=== PATIENT | male | born 1950 | race Caucasian/White ===

== ENCOUNTER → 2017-06-30 08:01 | Outpatient (CLI) | payer OTHER, MEDICARE, SELFPAY ==
[2017-06-30 10:11] LABS: Anion Gap 10 (5-15); BUN 30 mg/dL (7-18); Chloride 106 mmol/L (98-107); Creatinine, Serum 1.34 mg/dL (0.70-1.30); EST Glomerular Filtration Rate 56 mL/min (>60); Est Glom Filt Rate - Afr Amer 68 mL/min (>60); Potassium 4.2 mmol/L (3.5-5.1); Sodium Level 141 mmol/L (136-145)
== END ==
PROVIDERS: Family Provider Family Medicine; PCP Family Medicine
DX: E11.69 Type 2 diabetes mellitus with other specified complication (principal); Z79.4 Long term (current) use of insulin
CPT/HCPCS: 36415; 80051; 82565; 84520

== ENCOUNTER → 2018-05-26 07:36 | Outpatient (CLI) | payer MEDICARE, OTHER, SELFPAY ==
[2018-01-27 10:40] VITALS: BMI 40.1
[2018-05-26 10:25] LABS: AST(SGOT) 19 U/L (15-37); Alanine Aminotransfer ALT/SGPT 33 U/L (16-61); Albumin, Serum 3.8 g/dL (3.2-5.0); Alkaline Phosphatase 70 U/L (45-117); Bilirubin, Direct 0.17 mg/dL (0.00-0.30); Cholesterol 101 mg/dL (200); Globulin 3.7 g/dL (2.2-4.2); High Density Lipoprotein 42 mg/dL; Protein, Total 7.5 g/dL (6.4-8.2); Triglycerides 76 mg/dL; Very Low Density Lipoprotein 15 mg/dL (5-40)
== END ==
PROVIDERS: Family Provider Family Medicine; PCP Family Medicine; Referring Provider Internal Medicine Cardiovascular Disease; Visit Provider Internal Medicine Cardiovascular Disease
DX: I25.10 Atherosclerotic heart disease of native coronary artery without angina pectoris (principal); E78.5 Hyperlipidemia, unspecified
CPT/HCPCS: 36415; 80061; 80076

== ENCOUNTER → 2018-09-21 09:20 | Outpatient (CLI) | payer MEDICARE, OTHER, SELFPAY ==
[2018-08-20 11:08] VITALS: BMI 41.1
--- NOTE | 2018-09-21 09:21 | STEWCON_ITS ---
Reason For Study: ASHD, HTN Stress Results Protocol: Solomon Protocol WITH DEFINITY Maximum Predicted HR: 151 bpm Target HR: 128 bpm % Maximum Predicted HR: 99 % DurationHeart Rate Stage (mm:ss) (bpm) BP Comment BASELINE 71 158/903 CC DEFINITY STAGE 1 3:00 137 202/96 STAGE 2 1:16 150 / 1CC DEFINITY RECOVERY 85 166/88 Stress Duration: 4:16 mm:ss Maximum Stress HR: 150 bpm Baseline Echocardiogram Findings The estimated ejection fraction is 50 %. Stress Echo Wall motion Data Resting WM Intermediate WM Stress WM Resting Wall Motion Wall Motion Stress Infero-Basal: Mildly hypokinetic. No regional wall motion abnormalities noted. EKG Data The baseline ECG displays normal sinus rhythm. The patient exercised according to the regular Solomon protocol for a total duration of 4:16. The maximum heart rate attained was 162 beats per minute. This was 107% of maximum predicted heart rate. The patient exercised into stage 2 of the Solomon protocol. During stress, there were no ST or T wave changes noted to suggest ischemia. No clinical angina was noted. Interpretation Summary The estimated ejection fraction is 50 %. Normal, adequate, treadmill echocardiogram. Negative for ischemia by EKG and echocardiographic criteria. No anginal symptoms noted. Rare PVCs noted. Hypertensive blood pressure response to exercise. Below average exercise capacity for age. Patient had baseline inferobasal hypokinesis which did not appreciably worsened during exercise. All other poe appear to contract normally. Decreased sensitivity due to poor echo windows requiring Definity agent. Final LVEF of 60%. Test terminated due to dyspnea and attainment of target heart rate. No complications. The study was technically difficult. Contrast injection was performed. Ordering Physician: Carl Saldana Referring Physician: Carl Saldana Performed By: Gerard Harper RCS
== END ==
PROVIDERS: Family Provider Family Medicine; PCP Family Medicine; Referring Provider Internal Medicine Cardiovascular Disease; Visit Provider Internal Medicine Cardiovascular Disease
DX: I25.10 Atherosclerotic heart disease of native coronary artery without angina pectoris (principal); I10 Essential (primary) hypertension; E78.5 Hyperlipidemia, unspecified; Z95.1 Presence of aortocoronary bypass graft
CPT/HCPCS: 93017; 93350; Q9957; A4216; C8928

== ENCOUNTER 2019-02-02 01:28 | Emergency (ER) | payer MEDICARE, OTHER, SELFPAY ==
[2019-01-20 13:58] VITALS: BMI 41.1
[2019-02-02 01:29] VITALS: BP 187/92; PULSE 90; RESP 15; TEMP 36.3; O2SAT 94; BMI 41.3
[2019-02-02] MEDS: DiphenhydrAMINE 50 MG/ML Syringe 25 MG IV (01:50)
[2019-02-02] MEDS: Famotidine 200 MG/20 ML MDV 20 MG in 0.9% Normal Saline (Pres. free 8 ML 300 MG IV (01:52)
[2019-02-02 02:28] VITALS: BP 152/71; PULSE 75; RESP 16; O2SAT 94
--- NOTE | 2019-02-02 03:11 | ED.VIS.GEN ---
History of Present Illness Chief Complaint: Allergic Reaction Informant: Patient, Family Onset: Hours Context: Gradual Onset Current Severity: Mild Maximum Severity: Mild Narrative: Patient presents with possible allergic reaction to prednisone. He states he has a known sensitivity to steroids. He was started on oral prednisone by his ball worker. He took 20 mg at noon yesterday and 20 mg at 5:30 PM. He states when he went to bed tonight he just cannot get comfortable. He used his CPAP but realized he felt his throat was getting tight. states it does not seem as if his voice is normal. When patient presents to the ED he states symptoms have been ongoing for the last couple hours and did not seem to be getting any worse but not getting better either. - Past Medical History (1) S/P CABG x 3 Status: Chronic Comment: CABG x3 CAZARES to LAD, SVG to DX, SVG to OM 11/01/2013; Per Dr. Jose Luis Elena @ [facility] (2) Atherosclerotic heart disease of [place] coronary artery without angina pectoris Status: Chronic Comment: CABG x3 CAZARES to LAD, SVG to DX, SVG to OM 11/01/2013; (3) Hyperlipidemia Status: Chronic (4) Type II diabetes mellitus Status: Chronic (5) Hypertension Status: Chronic Past Medical History - Allergies and Home Meds Allergies/Adverse Reactions: Allergies cortisone [Cortisone] Adverse Reaction (Verified 01/19/19 08:57) Other Hiccups prednisone Adverse Reaction (Verified 01/19/19 08:57) Unknown Hiccups Primary Care Physician: Onel Graham MD [Primary Care Provider] - Doctors: Dr. Lyons Prior records reviewed: Yes Surgical History: tonsillectomy, - - Back surgery, carpal tunnel surgery Lives: Spouse/ Significant Other Smoking Status: Never smoker - Family History Maternal Family History: Family History (Last Reviewed 01/19/19 @ 08:58 by Lou Sanford) Father Polio Brother Alcoholism Colon cancer Hypertension Family History: Reports: No pertinent history Paternal Family History: Family History (Last Reviewed 01/19/19 @ 08:58 by Lou Sanford) Father Polio Brother Alcoholism Colon cancer Hypertension Family History: Reports: No pertinent history Review of Systems General: Denies: Chills, Fever Eyes: Denies: Visual changes - bilaterally ENT: Reports: - - Throat tightness. Denies: Bilateral ear pain Cardiovascular: Denies: Chest pain Respiratory: Denies: Dyspnea, Cough Gastrointestinal: Denies: Abdominal pain, Nausea, Vomiting, Diarrhea Skin: Reports: Wounds Allergy: Denies: Uticaria Physical Exam Vital Signs/Narrative: Vital Signs Temp Pulse Resp BP Pulse Ox 02/02/19 02:28 75 16 152/71 H 94 02/02/19 01:29 97.4 F L 90 15 187/92 H 94 Inital Vital Signs reviewed: Yes General: Well nourished, Well developed, - - Patient resting with head of bed approximately 45 degrees. He speaks with a strong voice and is tolerating secretions well. Head: Normocephalic ENT: Moist mucous membranes, - - Posterior pharynx examination unremarkable. Cardiovascular: Regular rate, Regular rhythm Respiratory: No distress, CTA bilaterally Abdomen: Soft, Nontender Extremities: Nontender Skin: Normal color, - - Scattered scabbed lesions noted on the left upper extremity consistent with the patient's current atopic dermatitis. Neurological: Alert, Oriented x3 Psychological: Normal affect Diagnostic/Tx/Re-eval - Medical Decision Making Patient was monitored on continuous pulse ox. He was given IV Benadryl and Pepcid. On repeat evaluation patient reports feeling better. feels that his voice is back to baseline. He is observed for period of an hour and a half and continues to do well. I did discuss with patient and at bedside that the half-life of prednisone is approximately 4 hours so I would expect the drug to be out of his system in 8 to 12 hours. They voiced understanding and agreement. ED Disposition - Plan for ED Patient: Disposition: Home or Assisted Living Diagnosis: Allergic reaction Instructions: ALLERGIC REACTION, Drug Prescriptions: DiphenhydrAMINE [Benadryl] 50 mg PO TID PRN PRN #20 cap PRN Reason: Allergies Transmission Status: Pending to [facility] Famotidine [Pepcid] 20 mg PO BID PRN #28 tab PRN Reason: Allergies Transmission Status: Pending to [facility] Referrals: Onel Graham MD [Primary Care Provider] - As Needed
[2019-02-02 03:28] VITALS: BP 155/76; PULSE 82; RESP 16; O2SAT 96
== END 2019-02-02 03:30 | disposition home or self-care (01) ==
PROVIDERS: Emergency Provider Emergency Medicine; Family Provider Family Medicine; PCP Family Medicine
DX: T78.40XA Allergy, unspecified, initial encounter (principal); X58.XXXA Exposure to other specified factors, initial encounter; L20.9 Atopic dermatitis, unspecified; I25.10 Atherosclerotic heart disease of native coronary artery without angina pectoris; E78.5 Hyperlipidemia, unspecified; E11.9 Type 2 diabetes mellitus without complications; I10 Essential (primary) hypertension; Z79.82 Long term (current) use of aspirin; Z79.4 Long term (current) use of insulin; Z79.899 Other long term (current) drug therapy; Z95.1 Presence of aortocoronary bypass graft
CPT/HCPCS: 96365; 96375; 99283; A4216; J3490

== ENCOUNTER → 2019-02-18 15:09 | Outpatient (CLI) | payer MEDICARE, OTHER, SELFPAY ==
[2019-02-02 01:29] VITALS: BMI 41.3
[2019-02-18 17:27] LABS: Absolute Lymphocyte Count 2.19 X10^3/uL (0.83-4.51); Absolute Neutrophil Count 5.5 X10^3/uL (2.0-7.7); Basophil# 0.09 X10^3/uL; Eosinophils% 4.4 % (0-5); Hematocrit 44.7 % (40-54); Hemoglobin 14.7 g/dL (13.0-16.5); Lymphocyte # 2.19 X10^3/ul (4.0); Lymphocyte % 23.9 % (19-41); Mean Corp Hgb Conc 32.9 g/dL (32-36); Mean Corpuscular Hgb 31.2 pg (27.0-32.0); Mean Corpuscular Volume 94.9 fL (80-94); Mean Platelet Vol. 10.7 fl (6.2-12.0); Monocyte# 0.93 X10^3/uL; Monocyte% 10.2 % (0-10); NRBC Flagged by Analyzer 0 % (0-5); Neutrophil % 60.1 % (47-70); Platelet Count 212 K/mm3 (150-450); RBC Distribution Width CV 12.2 % (11.6-14.6); RBC Distribution Width SD 42.8 fl (35.1-43.9); Red Blood Count 4.71 M/mm3 (4.6-6.2); White Blood Count 9.2 K/mm3 (4.4-11.0)
[2019-02-18 17:50] LABS: AST(SGOT) 17 U/L (15-37); Alanine Aminotransfer ALT/SGPT 36 U/L (16-61); Albumin, Serum 3.9 g/dL (3.2-5.0); Alkaline Phosphatase 87 U/L (45-117); Anion Gap 7 (5-15); BUN 43 mg/dL (7-18); BUN/Creat Ratio 24.3 RATIO (10-20); Calcium,Total 8.9 mg/dL (8.5-10.1); Chloride 103 mmol/L (98-107); Creatinine, Serum 1.77 mg/dL (0.70-1.30); EST Glomerular Filtration Rate 41 mL/min (>60); Est Glom Filt Rate - Afr Amer 49 mL/min (>60); Globulin 3.9 g/dL (2.2-4.2); Glucose 155 mg/dL (74-106); PSA,Total - Annual Screen 0.65 ng/mL (0.00-4.00); Potassium 4.5 mmol/L (3.5-5.1); Protein, Total 7.8 g/dL (6.4-8.2); Sodium Level 138 mmol/L (136-145)
== END ==
PROVIDERS: Family Provider Family Medicine; PCP Family Medicine; Visit Provider Family Medicine
DX: L50.9 Urticaria, unspecified (principal); R21 Rash and other nonspecific skin eruption; Z12.5 Encounter for screening for malignant neoplasm of prostate; Z84.81 Family history of carrier of genetic disease
CPT/HCPCS: 36415; 80053; 84153; 85025; G0103

== ENCOUNTER → 2019-12-20 08:11 | Outpatient (CLI) | payer MEDICARE, OTHER, SELFPAY ==
[2019-12-03 07:59] VITALS: BMI 43.9
[2019-12-20 11:25] LABS: Cholesterol 105 mg/dL (200); High Density Lipoprotein 41 mg/dL; Triglycerides 101 mg/dL; Very Low Density Lipoprotein 20 mg/dL (5-40)
== END ==
PROVIDERS: PCP Family Medicine; Referring Provider Family Medicine; Visit Provider Family Medicine
DX: I10 Essential (primary) hypertension (principal); Z15.01 Genetic susceptibility to malignant neoplasm of breast; Z15.09 Genetic susceptibility to other malignant neoplasm
CPT/HCPCS: 36415; 80061

== ENCOUNTER → 2020-01-17 11:26 | Outpatient (CLI) | payer MEDICARE, OTHER, SELFPAY ==
[2020-01-17 10:48] VITALS: BMI 44.6
[2020-01-17 15:43] LABS: ALB/GLOB Ratio 1.1 RATIO (0.9-2.4); AST(SGOT) 34 U/L (15-37); Alanine Aminotransfer ALT/SGPT 54 U/L (16-61); Alkaline Phosphatase 76 U/L (45-117); Anion Gap 7 (5-15); BUN 27 mg/dL (7-18); BUN/Creat Ratio 18.2 RATIO (10-20); Calcium,Total 9.7 mg/dL (8.5-10.1); Chloride 108 mmol/L (98-107); Creatinine, Serum 1.48 mg/dL (0.70-1.30); EST Glomerular Filtration Rate 50 mL/min (>60); Est Glom Filt Rate - Afr Amer 60 mL/min (>60); Globulin 3.5 g/dL (2.2-4.2); Glucose 113 mg/dL (74-106); Potassium 4.8 mmol/L (3.5-5.1); Protein, Total 7.5 g/dL (6.4-8.2); Sodium Level 142 mmol/L (136-145); Thyroid Stim Hormone (TSH) 1.88 uIU/mL (0.358-3.74)
[2020-01-17 16:07] LABS: Microalbumin:Creatinine Ratio 179.2 mg/g CRE (<30 mg/g CRE)
== END ==
PROVIDERS: PCP Family Medicine; Referring Provider Internal Medicine Endocrinology, Diabetes & Metabolism; Visit Provider Internal Medicine Endocrinology, Diabetes & Metabolism
DX: E11.42 Type 2 diabetes mellitus with diabetic polyneuropathy (principal); I25.10 Atherosclerotic heart disease of native coronary artery without angina pectoris; E78.5 Hyperlipidemia, unspecified
CPT/HCPCS: 36415; 80053; 82043; 82570; 84443

== ENCOUNTER 2020-03-26 18:18 | Emergency (ER) | payer MEDICARE, OTHER, SELFPAY ==
[2020-01-17 10:48] VITALS: BMI 44.6
[2020-03-26 18:19] VITALS: BP 199/97
[2020-03-26 18:20] VITALS: BP 201/106; PULSE 73; RESP 18; TEMP 36.1; O2SAT 97; BMI 43.0
--- NOTE | 2020-03-26 18:38 | CT_ITS ---
STUDY: CT ABDOMEN AND PELVIS WITHOUT CONTRAST REASON FOR EXAM: Male, 70 years old. Right lower quadrant pain PAIN TODAY, HX [place], HTN, CABG RADIATION DOSAGE (If Supplied By Facility): CTDIvol = ( 20.32 ) mGy, DLP = ( 1634.21 ) mGycm TECHNIQUE: Transaxial images were obtained from the dome of the diaphragm to the symphysis pubis without oral contrast, and without intravenous contrast. Sagittal and coronal images were reconstructed. Individualized dose optimization techniques were used for this CT. COMPARISON: None. FINDINGS: The visualized lung bases are unremarkable. The visualized portions of the heart are within normal limits. The lack of intravenous contrast limits evaluation of solid visceral organs. Normal liver. There is a round calcification within the right hepatic lobe which may reflect a granuloma. Normal spleen. Normal pancreas. Normal bilateral adrenal glands. There is right hydroureteronephrosis secondary to a 3.0 mm calculi within the proximal and mid ureter. There are nonobstructing right renal calculi measuring up to 3 mm. There are nonobstructing left renal calculi measuring up to 8.7 mm. There is a left renal cyst. Normal visualized stomach. Normal small intestine. Normal colon. The appendix is visualized and appears normal. There is diffuse atherosclerotic calcification of the abdominal aorta, without a demonstrated aneurysm. Normal inferior vena cava. Normal retroperitoneum. Normal urinary bladder. Normal abdominal wall. There are diffuse degenerative changes of the visualized lumbar spine. CT/Abdomen/Pelvis without Cont IMPRESSION: Right hydroureteronephrosis secondary to two ureteral 3 mm calculi. Bilateral nonobstructing renal calculi measuring up to 8.7 mm on the left. Atherosclerosis. Left renal cyst. Degenerative changes of the lumbar spine. Electronically Signed: Brianna Maldonado MD at 19:28 EST Tel , Service support ,
--- NOTE | 2020-03-26 18:41 | ED.DCSUM_ITS ---
History of Present Illness Chief Complaint: Abd Pain Informant: Patient Narrative: 70-year-old male states that 0300 today he woke with pain in the right lower quadrant. It is waxed and waned. He notes nausea and vomiting. He has a history of kidney stones. He has never had an appendectomy. He notes no testicular pain or radiation to his flank. He notes his urine is darker than normal. 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 Jose Luis Elena @ [facility] (4) Obesity Status: Chronic (5) Hyperlipidemia Status: Chronic (6) Hypertension Status: Chronic Past Medical History - Allergies and Home Meds Allergies/Adverse Reactions: Allergies prednisone Adverse Reaction (Severe, Verified 03/26/20 18:19) Anaphylactic reaction lisinopril Adverse Reaction (Intermediate, Verified 03/26/20 18:19) cough cortisone [Cortisone] Adverse Reaction (Verified 03/26/20 18:19) Other Hiccups Primary Care Physician: Klarissa Casillas MD [Primary Care Provider] - As Needed Evans Castellon MD [STAFF PHYSICIAN] - As soon as possible Surgical History: noncontributory, tonsillectomy, - - Back surgery, carpal tunnel surgery Smoking Status: Never smoker Drugs: None - Family History Maternal Family History: Family History (Last Reviewed 01/17/20 @ 13:[address] Narciso Malloy MD) Father Polio Brother Alcoholism Colon cancer Hypertension Family History: Reports: No pertinent history Paternal Family History: Family History (Last Reviewed 01/17/20 @ 13:[address] Narciso Malloy MD) Father Polio Brother Alcoholism Colon cancer Hypertension Family History: Reports: No pertinent history Review of Systems General: Denies: Chills, Fever, Sweats Eyes: Denies: Visual changes - bilaterally, Diplopia ENT: Denies: Rhinorrhea, Sore throat Cardiovascular: Denies: Chest pain, Palpitations Respiratory: Denies: Dyspnea, Cough, Dyspnea on exertion Gastrointestinal: Reports: Abdominal pain, Nausea, Vomiting. Denies: Diarrhea, Melena, Hematochezia Genitourinary: Denies: Dysuria, Hematuria, Frequency Musculoskeletal: Denies: Back pain, Extremity Pain Skin: Denies: Rash, Wounds Neurological: Denies: Headache, Weakness, Numbness Physical Exam Vital Signs/Narrative: Vital Signs Temp Pulse Resp BP Pulse Ox 03/26/20 18:20 96.9 F L 73 18 201/106 H 97 Inital Vital Signs reviewed: Yes General: Well nourished, Well developed, Obese, No Acute Distress Head: Normocephalic, Atraumatic Eyes: Perrl, EOMI ENT: Moist mucous membranes, No rhinorrhea Neck: Supple, Nontender Cardiovascular: Regular rate, Regular rhythm, No murmurs Respiratory: No distress, CTA bilaterally, Chest nontender Abdomen: Soft, Nontender, Nondistended, Normal bowel sounds Back: Nontender, Normal Inspection Extremities: Nontender, No edema Skin: Normal color, No rash Neurological: Alert, Oriented x3, Cranial nerves II-XII grossly intact, Normal Strength, Normal Sensation Psychological: Normal affect, Normal Mood Diagnostic/Tx/Re-eval Clinical Impression(s) from Imaging Studies Abdomen/Pelvis CT 03/26/20 18:38 IMPRESSION: Right hydroureteronephrosis secondary to two ureteral 3 mm calculi. Bilateral nonobstructing renal calculi measuring up to 8.7 mm on the left. Atherosclerosis. Left renal cyst. Degenerative changes of the lumbar spine. Electronically Signed: Brianna Maldonado MD at 19:28 EST Tel , Service support , Laboratory Last Values WBC 14.5 K/mm3 (4.4-11.0) H 03/26/20 18:50 RBC 4.81 M/mm3 (4.6-6.2) 03/26/20 18:50 Hgb 15.0 g/dL (13.0-16.5) 03/26/20 18:50 Hct 46.8 % (40-54) 03/26/20 18:50 MCV 97.3 fL (80-94) H 03/26/20 18:50 MCH 31.2 pg (27.0-32.0) 03/26/20 18:50 MCHC 32.1 g/dL (32-36) 03/26/20 18:50 RDW Std Deviation 44.5 fl (35.1-43.9) H 03/26/20 18:50 RDW Coeff of [place] 12.3 % (11.6-14.6) 03/26/20 18:50 Plt Count 195 K/mm3 (150-450) 03/26/20 18:50 MPV 11.3 fl (6.2-12.0) 03/26/20 18:50 Immature Gran % (Auto) 0.800 % (0.0-0.9) 03/26/20 18:50 Neut % (Auto) 79.5 % (47-70) H 03/26/20 18:50 Lymph % (Auto) 11.4 % (19-41) L 03/26/20 18:50 [place] % (Auto) 7.3 % (0-10) 03/26/20 18:50 Eos % (Auto) 0.6 % (0-5) 03/26/20 18:50 Baso % (Auto) 0.4 % (0-1) 03/26/20 18:50 Absolute Neuts (auto) 11.6 X10^3/uL (2.0-7.7) H 03/26/20 18:50 Absolute Lymphs (auto) 1.65 X10^3/uL (0.83-4.51) 03/26/20 18:50 Nucleated RBC % 0 % (0-5) 03/26/20 18:50 Sodium 142 mmol/L (136-145) 03/26/20 18:50 Potassium 4.0 mmol/L (3.5-5.1) 03/26/20 18:50 Chloride 111 mmol/L (98-107) H 03/26/20 18:50 Carbon Dioxide 25.0 mmol/L (21.0-32.0) 03/26/20 18:50 Anion Gap 6 (5-15) 03/26/20 18:50 BUN 31 mg/dL (7-18) H 03/26/20 18:50 Creatinine 1.76 mg/dL (0.70-1.30) H 03/26/20 18:50 Estim Creat Clear Calc 43.51 ml/min 03/26/20 18:50 Est GFR (MDRD) Af Amer 49 mL/min (>60) L 03/26/20 18:50 Est GFR (MDRD) Non-Af 41 mL/min (>60) L 03/26/20 18:50 BUN/Creatinine Ratio 17.6 RATIO (10-20) 03/26/20 18:50 Glucose 149 mg/dL (74-106) H 03/26/20 18:50 Calcium 9.0 mg/dL (8.5-10.1) 03/26/20 18:50 Urine Color Yellow (Yellow) 03/26/20 18:45 Urine Clarity Cloudy (Clear) 03/26/20 18:45 Urine pH 5.0 (5.0 - 8.0) 03/26/20 18:45 Ur Specific [place] 1.020 (1.002-1.030) 03/26/20 18:45 Urine Protein 100 mg/dl (Negative) H 03/26/20 18:45 Urine Glucose (UA) Normal mg/dl (Normal) 03/26/20 18:45 Urine Ketones 5 mg/dl (Negative) H 03/26/20 18:45 Urine Occult Blood 250 /ul (Negative) H 03/26/20 18:45 Urine Nitrite Negative (Negative) 03/26/20 18:45 Urine Bilirubin Negative mg/dL (Negative) 03/26/20 18:45 Urine Urobilinogen Normal mg/dl (Normal) 03/26/20 18:45 Ur Leukocyte Esterase 25 /ul (Negative) H 03/26/20 18:45 Urine RBC > 100 SEEN /hpf (0-5) 03/26/20 18:45 Urine WBC 0-5 SEEN /hpf (0-5) 03/26/20 18:45 Ur Squamous Epith Cells 0 SEEN /hpf (0-5) 03/26/20 18:45 Urine Bacteria 0 SEEN /hpf (None Seen) 03/26/20 18:45 Urine Mucus 0 SEEN /hpf (<or=2+) 03/26/20 18:45 - Medical Decision Making She received morphine Zofran and IV fluids. He is resting more comfortably. He'll be redosed as he states that he is still having some pain. Work-up shows hematuria and a slight leukocytosis. There is no evidence of urine infection. CT demonstrates two ureteral stones on the right with associated hydronephroureter. I'm recommending to the patient given he has 2 stones in the ureter and more stones in his kidneys and this is a recurrent condition he may wish to see urology for follow-up. I will provide him name and number. I also write for oxycodone and Zofran and Flomax to take at night. ED Disposition - Plan for ED Patient: Disposition: Home or Assisted Living Diagnosis: Ureterolithiasis, Acute abdominal pain Instructions: ED Kidney Stone w/ Colic Prescriptions: Tamsulosin HCl [Flomax] 0.4 mg PO QHS #7 cap Transmission Status: Received by [facility] #30 Oxycodone [Oxyir] 5 - 10 mg PO Q4H PRN PRN 3 Days #20 tab PRN Reason: Pain Transmission Status: Received by [facility] Ondansetron [Zofran Odt] 4 mg PO Q6H PRN PRN #10 tab PRN Reason: Nausea Transmission Status: Received by [facility] Referrals: Evans Castellon MD [STAFF PHYSICIAN] - As soon as possible Klarissa Casillas MD [Primary Care Provider] - As Needed
[2020-03-26] MEDS: Morphine 4 MG/ML Syringe IV ×2 (18:52→20:02)
[2020-03-26] MEDS: Ondansetron 4 MG/2 ML Vial IV ×2 (18:53→20:02)
[2020-03-26] MEDS: 0.9% Normal Saline 1,000 ML 999 ML IV (18:53)
[2020-03-26 19:15] LABS: Bacteria 0 SEEN /hpf (None Seen); Mucous, Urine 0 SEEN /hpf (<or=2+); Squamous Epithelial Cells - UA 0 SEEN /hpf (0-5)
[2020-03-26 19:19] LABS: Absolute Lymphocyte Count 1.65 X10^3/uL (0.83-4.51); Absolute Neutrophil Count 11.6 X10^3/uL (2.0-7.7); Basophil# 0.06 X10^3/uL; Basophil% 0.4 % (0-1); Eosinophil# 0.08 X10^3/uL; Eosinophils% 0.6 % (0-5); Hematocrit 46.8 % (40-54); Lymphocyte # 1.65 X10^3/ul (4.0); Lymphocyte % 11.4 % (19-41); Mean Corp Hgb Conc 32.1 g/dL (32-36); Mean Corpuscular Hgb 31.2 pg (27.0-32.0); Mean Corpuscular Volume 97.3 fL (80-94); Mean Platelet Vol. 11.3 fl (6.2-12.0); Monocyte# 1.06 X10^3/uL; Monocyte% 7.3 % (0-10); NRBC Flagged by Analyzer 0 % (0-5); Neutrophil # 11.55 X10^3/uL (2.7-7.7); Neutrophil % 79.5 % (47-70); Platelet Count 195 K/mm3 (150-450); RBC Distribution Width CV 12.3 % (11.6-14.6); RBC Distribution Width SD 44.5 fl (35.1-43.9); Red Blood Count 4.81 M/mm3 (4.6-6.2); White Blood Count 14.5 K/mm3 (4.4-11.0)
[2020-03-26 19:27] LABS: Color, Urine Yellow (Yellow); Glucose, Dipstick Normal (Normal); Ketone-Dipstick 5 mg/dl (Negative); Leukocyte Esterase-Dipstick 25 /ul (Negative); Nitrite-Dipstick Negative (Negative); Occult Blood-Urine 250 /ul (Negative); Protein-Dipstick 100 mg/dl (Negative); Urine Bilirubin Dipstick Negative (Negative); Urine Clarity Cloudy (Clear); Urine Urobilinogen Normal (Normal)
[2020-03-26 19:37] LABS: Red Blood Cells-Urine > 100 SEEN /hpf (0-5); White Blood Cells 0-5 SEEN /hpf (0-5)
[2020-03-26 19:42] LABS: Anion Gap 6 (5-15); BUN 31 mg/dL (7-18); BUN/Creat Ratio 17.6 RATIO (10-20); Chloride 111 mmol/L (98-107); Creatinine, Serum 1.76 mg/dL (0.70-1.30); EST Glomerular Filtration Rate 41 mL/min (>60); Est Glom Filt Rate - Afr Amer 49 mL/min (>60); Estimated Creatinine Clearance 43.51 ml/min; Glucose 149 mg/dL (74-106); Sodium Level 142 mmol/L (136-145)
[2020-03-26 19:47] VITALS: BP 186/90
[2020-03-26 20:03] VITALS: BP 177/83; PULSE 99; RESP 17; O2SAT 98
== END 2020-03-26 20:07 | disposition home or self-care (01) ==
PROVIDERS: Emergency Provider Emergency Medicine; PCP Family Medicine
DX: N13.2 Hydronephrosis with renal and ureteral calculous obstruction (principal); E11.42 Type 2 diabetes mellitus with diabetic polyneuropathy; I10 Essential (primary) hypertension; E78.5 Hyperlipidemia, unspecified; E66.9 Obesity, unspecified; Z79.4 Long term (current) use of insulin; Z87.442 Personal history of urinary calculi; Z95.1 Presence of aortocoronary bypass graft
CPT/HCPCS: 74176; 80048; 81001; 85025; 96361; 96374; 96375; 96376; 99283; J7030; A4216; J2405

== ENCOUNTER → 2020-04-25 13:58 | Outpatient (CLI) | payer MEDICARE, OTHER, SELFPAY ==
[2020-03-26 18:20] VITALS: BMI 43.0
--- NOTE | 2020-04-25 14:10 | RAD_ITS ---
STUDY: X-RAY - ABDOMEN/PELVIS REASON FOR EXAM: Male, 70 years old. CALCULUS OF KIDNEY W/CALCULUS OF URETER TECHNIQUE: Single AP view of the abdomen / pelvis. COMPARISON: None. FINDINGS: Normal visualized lung bases. There is an unremarkable bowel gas pattern. There is a 1.4 cm calculus in the lower pole calyx of the left kidney. Adjacent to this, there is a 0.6 cm calculus in the lower pole calyx of the left kidney. There are calcified phleboliths in the pelvis. There are diffuse degenerative changes of the visualized lumbar spine. RAD/Abdomen Single View IMPRESSION: 1.4 cm focus in the lower pole of the left kidney. A 0.6 cm calculus is seen in the lower pole of the left kidney adjacent to the larger calculus. Electronically Signed: Brian Plata MD at 14:43 EST , Service support ,
== END ==
PROVIDERS: PCP Family Medicine; Visit Provider Urology
DX: N20.2 Calculus of kidney with calculus of ureter (principal)
CPT/HCPCS: 74018

== ENCOUNTER → 2020-06-14 10:43 | Outpatient (CLI) | payer MEDICARE, OTHER, SELFPAY ==
[2020-06-12 08:06] VITALS: BMI 43.1
[2020-06-14 12:49] LABS: Anion Gap 4 (5-15); BUN 25 mg/dL (7-18); BUN/Creat Ratio 16.2 RATIO (10-20); Calcium,Total 9.2 mg/dL (8.5-10.1); Chloride 108 mmol/L (98-107); Creatinine, Serum 1.54 mg/dL (0.70-1.30); EST Glomerular Filtration Rate 48 mL/min (>60); Est Glom Filt Rate - Afr Amer 58 mL/min (>60); Glucose 203 mg/dL (74-106); PSA,Total - Annual Screen 0.64 ng/mL (0.00-4.00); Potassium 5.3 mmol/L (3.5-5.1); Sodium Level 141 mmol/L (136-145)
== END ==
PROVIDERS: PCP Family Medicine; Referring Provider Family Medicine; Visit Provider Family Medicine
DX: N18.30 Chronic kidney disease, stage 3 unspecified (principal); Z12.5 Encounter for screening for malignant neoplasm of prostate
CPT/HCPCS: 36415; 80048; 84153; G0103

== ENCOUNTER → 2020-06-21 10:13 | Outpatient (CLI) | payer MEDICARE, OTHER, SELFPAY ==
[2020-06-12 08:06] VITALS: BMI 43.1
[2020-06-21 12:24] LABS: Anion Gap 7 (5-15); BUN 33 mg/dL (7-18); BUN/Creat Ratio 20.9 RATIO (10-20); Calcium,Total 9.3 mg/dL (8.5-10.1); Chloride 106 mmol/L (98-107); Creatinine, Serum 1.58 mg/dL (0.70-1.30); EST Glomerular Filtration Rate 46 mL/min (>60); Est Glom Filt Rate - Afr Amer 56 mL/min (>60); Glucose 121 mg/dL (74-106); Potassium 4.5 mmol/L (3.5-5.1); Sodium Level 139 mmol/L (136-145)
== END ==
PROVIDERS: PCP Family Medicine; Referring Provider Family Medicine; Visit Provider Family Medicine
DX: N18.30 Chronic kidney disease, stage 3 unspecified (principal); Z12.5 Encounter for screening for malignant neoplasm of prostate
CPT/HCPCS: 36415; 80048

== ENCOUNTER 2020-08-21 20:53 | Emergency (ER) | payer MEDICARE, OTHER, SELFPAY ==
[2020-06-12 08:06] VITALS: BMI 43.1
[2020-08-21 20:54] VITALS: BP 145/64; PULSE 50; RESP 18; TEMP 35.4; O2SAT 93; BMI 42.2
[2020-08-21] MEDS: Ketorolac 15 MG/ML Vial IV (21:11)
[2020-08-21 21:12] VITALS: BP 181/74; PULSE 68; RESP 18; O2SAT 96
[2020-08-21] MEDS: Ondansetron 4 MG/2 ML Vial IV (21:12)
[2020-08-21] MEDS: Morphine 4 MG/ML Syringe IV (21:12)
--- NOTE | 2020-08-21 22:17 | CT_ITS ---
STUDY: CT ABDOMEN AND PELVIS WITHOUT CONTRAST REASON FOR EXAM: Male, 70 years old. Kidney Stone RADIATION DOSAGE (If Supplied By Facility): CTDIvol = ( 23.64 ) mGy, DLP = ( 1346.79 ) mGycm TECHNIQUE: Transaxial images were obtained from the dome of the diaphragm to the symphysis pubis without oral contrast, and without intravenous contrast. Sagittal and coronal images were reconstructed. Individualized dose optimization techniques were used for this CT. COMPARISON: CT of abdomen and pelvis dated March 26, 2020 FINDINGS: The visualized lung bases are unremarkable. Median sternotomy wires are present. A 1.57 cm calcification is reidentified in the posterior inferior aspect of the right lobe of the liver. The liver is otherwise unremarkable. Normal gallbladder and extrahepatic biliary system. Normal spleen. Normal pancreas. Normal bilateral adrenal glands. Reidentification of a 1.4 cm stone in the central pelvis of the left kidney. Moderate size simple cyst in the mid aspect of the left kidney reidentified and does not require any additional imaging. Reidentification multiple punctate calyceal stones scattered throughout the right kidney as well as a 3 mm stone seen in the midpole of the right kidney. No visualized hydronephrosis. Mild perinephric stranding of both kidneys unchanged from the prior study. Normal visualized stomach. Normal small intestine. Normal colon. The appendix is visualized and appears normal. There is diffuse atherosclerotic calcification of the abdominal aorta, without a demonstrated aneurysm. Normal inferior vena cava. Normal retroperitoneum. Normal urinary bladder. Normal abdominal wall. There are diffuse degenerative changes of the visualized lumbar spine. CT/Abdomen/Pelvis without Cont IMPRESSION: 1. Reidentification of a 1.4 cm stone in the central pelvis of the left kidney. Moderate size simple cyst in the mid aspect of the left kidney reidentified and does not require any additional imaging. 2. Reidentification multiple punctate calyceal stones scattered throughout the right kidney as well as a 3 mm stone seen in the midpole of the right kidney. 3. No visualized hydronephrosis. 4. Mild perinephric stranding of both kidneys unchanged from the prior study. Electronically Signed: Ross Lubin MD at 23:15 EDT , Service support ,
[2020-08-21 22:25] LABS: Absolute Lymphocyte Count 2.44 X10^3/uL (0.83-4.51); Absolute Neutrophil Count 8.4 X10^3/uL (2.0-7.7); Basophil% 0.8 % (0-1); Eosinophil# 0.43 X10^3/uL; Eosinophils% 3.4 % (0-5); Hematocrit 47.3 % (40-54); Hemoglobin 15.5 g/dL (13.0-16.5); Lymphocyte # 2.44 X10^3/ul (0.83-4.51); Lymphocyte % 19.2 % (19-41); Mean Corp Hgb Conc 32.8 g/dL (32-36); Mean Corpuscular Hgb 32.2 pg (27.0-32.0); Mean Corpuscular Volume 98.3 fL (80-94); Mean Platelet Vol. 11.4 fl (6.2-12.0); Monocyte# 1.24 X10^3/uL; Monocyte% 9.8 % (0-10); NRBC Flagged by Analyzer 0 % (0-5); Neutrophil # 8.41 X10^3/uL (2.7-7.7); Neutrophil % 66.2 % (47-70); Platelet Count 208 K/mm3 (150-450); RBC Distribution Width CV 12.1 % (11.6-14.6); Red Blood Count 4.81 M/mm3 (4.6-6.2); White Blood Count 12.7 K/mm3 (4.4-11.0)
[2020-08-21 22:34] LABS: Anion Gap 10 (5-15); BUN 39 mg/dL (7-18); BUN/Creat Ratio 18.3 RATIO (10-20); Calcium,Total 9.6 mg/dL (8.5-10.1); Chloride 104 mmol/L (98-107); Creatinine, Serum 2.13 mg/dL (0.70-1.30); EST Glomerular Filtration Rate 33 mL/min (>60); Est Glom Filt Rate - Afr Amer 40 mL/min (>60); Estimated Creatinine Clearance 35.95 ml/min; Glucose 174 mg/dL (74-106); Potassium 4.9 mmol/L (3.5-5.1); Sodium Level 140 mmol/L (136-145)
--- NOTE | 2020-08-21 22:43 | EDS_ITS ---
HPI History of Present Illness Chief Complaint: Flank Pain Informant: patient Onset/Context/Timing Onset: Today Current Severity: Moderate Maximum Severity: Severe Narrative Narrative: Patient is a 70-year-old male medical history significant for diabetes, hypertension, hyperlipidemia the presents to the emergency department left-sided flank pain. Patient states he has a known history of kidney stones. He states he last had one about 4 months ago. He does see Dr. Castellon. He states tonight at about 530, he had sudden onset, sharp, stabbing pain in his left flank. He was mildly nauseated but no vomiting. He states it feels like his prior stones before. He does not think he had lithotripsy or stenting. He denies chest pain or shortness of breath. Prior similar symptoms: Yes Recent Illness/Hospitalization: No PFSH [facility], LATER [facility] Medical History Atherosclerotic heart disease of [place] coronary artery without angina pectoris Back problem Carpal tunnel syndrome Chronic renal insufficiency COPD (chronic obstructive pulmonary disease) Diabetes Encounter for long-term (current) insulin use Essential (primary) hypertension History of non-ST elevation myocardial infarction (NSTEMI) (10/28/13) Hyperlipidemia Kidney stones Obesity [place] (obstructive sleep apnea) Polyneuropathy due to type 2 diabetes mellitus Seasonal allergies Type II diabetes mellitus Home Medications aspirin 81 mg tablet,delayed release 81 mg PO QDAY 07/16/17 [History Last Taken Unknown] multivitamin 1 tab PO DAILY 12/25/18 [History Last Taken Unknown] atorvastatin 20 mg tablet 20 mg PO DAILY 07/29/19 [History Last Taken Unknown] metformin 1,000 mg tablet 1,000 mg PO BID #60 tab 01/06/20 [Rx Last Taken Unknown] losartan 50 mg tablet 50 mg PO DAILY #90 tab 03/27/20 [Rx Last Taken Unknown] pen needle, diabetic 32 gauge x #600 ea 04/25/20 [Rx Last Taken Unknown] metoprolol tartrate 50 mg tablet 50 mg PO BID #180 tablet 06/01/20 [Rx Last Taken Unknown] insulin lispro 100 unit/mL subcutaneous pen 30 unit SC TID #81 ml 06/12/20 [Rx Last Taken Unknown] blood sugar diagnostic #100 ea 07/31/20 [Rx Last Taken Unknown] lancets 33 gauge #120 ea 07/31/20 [Rx Last Taken Unknown] hydrocodone-acetaminophen 1 tab PO Q6H PRN PRN 3 Days #10 tablet 08/21/20 [Rx Last Taken Unknown] insulin degludec [Tresiba FlexTouch U-200] 85 unit SC DAILY 08/21/20 [History Last Taken Unknown] ondansetron 4 mg PO Q8H PRN PRN #10 tab 08/21/20 [Rx Last Taken Unknown] Allergy/AdvReac Type Severity Reaction Status Date / Time prednisone AdvReac Severe Anaphylactic Verified 08/21/20 20:53 reaction lisinopril AdvReac Intermediate cough Verified 08/21/20 20:53 cortisone [Cortisone] AdvReac Other Verified 08/21/20 20:53 Family History Father Polio Brother Alcoholism Colon cancer Hypertension Surgical History H/O coronary artery bypass surgery (11/01/13) History of back surgery History of left heart catheterization (10/28/13) Social History Smoking Status: Never smoker alcohol intake: current alcohol intake frequency: holidays/special occasions only substance use type: does not use what type of physical activity do you participate in: other frequency: 3-4 times per week ROS ROS ED Constitutional Constitutional ED: Denies chills or fever(s) Eyes Eyes: Denies blurry vision or change in vision ENT ENT ED: Denies ear pain or sore throat Cardiovascular Cardiovascular: Denies chest pain or palpitations Respiratory/Chest Respiratory/Chest: Denies cough, dyspnea or dyspnea on exertion Gastrointestinal Gastrointestinal: Denies abdominal pain, nausea or vomiting Genitourinary Genitourinary ED: Denies dysuria or urinary frequency Musculoskeletal Musculoskeletal: Denies arthralgias or myalgias Integumentary Denies rash Neurologic Neurologic: Denies headache(s) or paresthesias Psychiatric Psychiatric: Denies anxiety or depression Endocrine Endocrinology: Denies polydipsia or polyuria Allergic/Immunologic Allergic/Immunologic ED: Denies urticaria EXAM Physical Exam Const Vital Signs: 08/21/20 20:54 08/21/20 21:12 08/21/20 21:14 Temperature 95.7 F L Temperature Source Temporal Pulse Rate 50 L 68 Respiratory Rate 18 18 Respiratory Effort Normal Respiratory Pattern Normal Blood Pressure 145/64 H 181/74 H Blood Pressure Mean 91 109 Pulse Ox 93 96 Oxygen Delivery Method Room Air Room Air Positive well nourished and well developed General Appearance ED: well developed HEENT Reports normocephalic, head/scalp atraumatic and moist mucous membranes Eyes PERRL and EOMs intact bilaterally Neck no lymphadenopathy and supple General: Negative for tenderness Chest Wall inspection of chest normal Resp normal respiratory effort and clear to auscultation bilaterally Cardio regular rate, regular rhythm and no murmurs GI normal to inspection, nondistended, normoactive bowel sounds Palpation: Negative for tender, guarding or rebound tenderness present Back/Spine General Back: CVA tenderness Cervical Spine: Negative for cervical spine tenderness Thoracic Spine / Upper Back: Negative for thoracic spinal tenderness Extremity normal to inspection General Extremety ED: Negative for tenderness Neuro oriented x3 and CN's II-XII intact bilaterally Neuro Narrative: No focal deficits appreciated. Sensorium / Orientation: alert Psych mental status grossly normal Skin no rashes or lesions noted, no wounds and skin turgor normal MDM MDM MDM Narrative Medical decision making narrative: Patient presents with left lateral flank pain. He was given analgesics and antiemetics and had resolution of his pain. Labs were obtained. The patient's creatinine is about his baseline. He does have mild leukocytosis. Urine does not show evidence of infection. The patient underwent CT imaging. He does have a large stone within the pelvis of the kidney. There is no hydronephrosis. My suspicion is the patient likely had some slight moving the stone that caused his pain and mild hematuria. There is no evidence of obstruction. His pain is now controlled. I am going to give him a short course of analgesics and have him follow-up with urology. Impression 1. Kidney stone on the left Lab Data Attestation: I reviewed the patient's lab results. Labs: Laboratory Results - last 24 hr 08/21/20 08/21/20 08/21/20 20:55 20:55 23:05 WBC 12.7 H RBC 4.81 Hgb 15.5 Hct 47.3 MCV 98.3 H MCH 32.2 H MCHC 32.8 RDW Std Deviation 44.0 H RDW Coeff of Nedra 12.1 Plt Count 208 MPV 11.4 Immature Gran % (Auto) 0.600 Neut % (Auto) 66.2 Lymph % (Auto) 19.2 [place] % (Auto) 9.8 Eos % (Auto) 3.4 Baso % (Auto) 0.8 Absolute Neuts (auto) 8.4 H Absolute Lymphs (auto) 2.44 Nucleated RBC % 0 Sodium 140 Potassium 4.9 Chloride 104 Carbon Dioxide 26.0 Anion Gap 10 BUN 39 H Creatinine 2.13 H Estim Creat Clear Calc 35.95 Est GFR (MDRD) Af Amer 40 L Est GFR (MDRD) Non-Af 33 L BUN/Creatinine Ratio 18.3 Glucose 174 H Calcium 9.6 Urine Color Yellow Urine Clarity Sl. Cloudy Urine pH 5.0 Ur Specific [place] 1.020 Urine Protein 100 H Urine Glucose (UA) Normal Urine Ketones 5 H Urine Occult Blood 250 H Urine Nitrite Negative Urine Bilirubin Negative Urine Urobilinogen Normal Ur Leukocyte Esterase 25 H Radiography Diagnostic Testing: Radiology Impression Abdomen/Pelvis CT 08/21/20 22:17 IMPRESSION: 1. Reidentification of a 1.4 cm stone in the central pelvis of the left kidney. Moderate size simple cyst in the mid aspect of the left kidney reidentified and does not require any additional imaging. 2. Reidentification multiple punctate calyceal stones scattered throughout the right kidney as well as a 3 mm stone seen in the midpole of the right kidney. 3. No visualized hydronephrosis. 4. Mild perinephric stranding of both kidneys unchanged from the prior study. Electronically Signed: Ross Lubin MD at 23:15 EDT , Service support , Discharge Plan Triage Chief Complaint: Flank Pain ED Provider: Kaden Hobbs Dx/Rx/DC Orders Instructions: ED Kidney Stone w/ Colic Prescriptions: New hydrocodone-acetaminophen [hydrocodone-acetaminophen] 1 TABLET tablet 1 tab PO Q6H PRN PRN (Reason: Pain) 3 Days Qty: 10 RF: 0 ondansetron [ondansetron] 4 MG tablet 4 mg PO Q8H PRN PRN (Reason: Nausea) Qty: 10 RF: 0 No Action aspirin [Adult Low Dose Aspirin] 81 mg tablet,delayed release (DR/EC) 81 mg PO QDAY RF: 0 atorvastatin 20 mg tablet 20 mg PO DAILY RF: 0 multivitamin Tablet 1 tab PO DAILY RF: 0 metoprolol tartrate 50 mg tablet 50 mg PO BID Qty: 180 RF: 6 insulin lispro [Humalog KwikPen Insulin] 100 unit/mL insulin pen 30 unit SC TID Qty: 81 RF: 3 Tresiba FlexTouch U-200 200 unit/mL (3 mL) insulin pen 85 unit SC DAILY RF: 0 metformin 1,000 mg tablet 1,000 mg PO BID Qty: 60 RF: 6 losartan 50 mg tablet 50 mg PO DAILY Qty: 90 RF: 3 (DME) pen needle, diabetic [BD Ultra-Fine [place] Pen Needle] 32 gauge x 5/32 needle See Rx Instructions .ROUTE .MEDSUPPLY Qty: 600 RF: 3 (DME) lancets [OneTouch Delica Plus Lancet] 33 gauge misc See Rx Instructions .ROUTE .MEDSUPPLY Qty: 120 RF: 8 (DME) OneTouch Verio test strips Strip See Rx Instructions .ROUTE .MEDSUPPLY Qty: 100 RF: 12 Primary Care Provider: Klarissa Casillas Referrals: Klarissa Casillas MD [Primary Care Provider] -
[2020-08-21 23:19] LABS: Mucous, Urine 0 SEEN /hpf (<or=2+); Squamous Epithelial Cells - UA 0 SEEN /hpf (0-5)
[2020-08-21 23:20] LABS: Color, Urine Yellow (Yellow); Glucose, Dipstick Normal (Normal); Ketone-Dipstick 5 mg/dl (Negative); Leukocyte Esterase-Dipstick 25 /ul (Negative); Nitrite-Dipstick Negative (Negative); Occult Blood-Urine 250 /ul (Negative); Protein-Dipstick 100 mg/dl (Negative); Urine Bilirubin Dipstick Negative (Negative); Urine Clarity Sl. Cloudy (Clear); Urine Urobilinogen Normal (Normal)
[2020-08-21 23:41] LABS: Red Blood Cells-Urine > 100 SEEN /hpf (0-5); Renal Epithelial Cells 0-5 SEEN /hpf (0-5); White Blood Cells 5-10 SEEN /hpf (0-5)
[2020-08-21 23:42] LABS: Bacteria RARE /hpf (None Seen)
== END 2020-08-21 23:54 ==
PROVIDERS: Emergency Provider Emergency Medicine; PCP Family Medicine
DX: N20.0 Calculus of kidney (principal); I25.10 Atherosclerotic heart disease of native coronary artery without angina pectoris; I10 Essential (primary) hypertension; E11.42 Type 2 diabetes mellitus with diabetic polyneuropathy; E78.5 Hyperlipidemia, unspecified; J44.9 Chronic obstructive pulmonary disease, unspecified; G47.33 Obstructive sleep apnea (adult) (pediatric); E66.9 Obesity, unspecified; Z79.82 Long term (current) use of aspirin; Z79.4 Long term (current) use of insulin; Z79.899 Other long term (current) drug therapy; I25.2 Old myocardial infarction; Z87.442 Personal history of urinary calculi; Z95.1 Presence of aortocoronary bypass graft
CPT/HCPCS: 74176; 80048; 81001; 85025; 96374; 96375; 99282; J7030; A4216; J2405

== ENCOUNTER 2020-08-23 11:23 | Day surgery (SDC) | payer MEDICARE, OTHER, SELFPAY ==
[2020-08-23] VITALS (9 sets, daily range): BP systolic 112–192; BP diastolic 62–98; PULSE 68–72; RESP 16; TEMP 35.7–36.7; O2SAT 94–100; BMI 42.8
--- NOTE | 2020-08-23 11:37 | EDS_ITS ---
HPI History of Present Illness Chief Complaint: Flank Pain Informant: patient Onset/Context/Timing Onset: Days Context: Gradual Onset Timing: Waxes and wanes Current Severity: Moderate Maximum Severity: Severe Narrative Narrative: Patient presents secondary to left flank pain. Patient was seen in the ER 2 nights ago and diagnosed with a left-sided kidney stone. Patient had increased pain today with vomiting. He called Dr. Castellon's office who asked him to come in. Dr. Castellon plans to take him to the OR today for a stent. Patient denies fever or chills. He had iced coffee this morning around 7 AM. Last solid food was 5 PM last evening I did review the patient's recent ER visit. CT scan reading is as below. .IMPRESSION: 1. Reidentification of a 1.4 cm stone in the central pelvis of the left kidney. Moderate size simple cyst in the mid aspect of the left kidney reidentified and does not require any additional imaging. 2. Reidentification multiple punctate calyceal stones scattered throughout the right kidney as well as a 3 mm stone seen in the midpole of the right kidney. 3. No visualized hydronephrosis. 4. Mild perinephric stranding of both kidneys unchanged from the prior study. [facility] Medical History Atherosclerotic heart disease of [place] coronary artery without angina pectoris Back problem Carpal tunnel syndrome Chronic renal insufficiency COPD (chronic obstructive pulmonary disease) Diabetes Encounter for long-term (current) insulin use Essential (primary) hypertension History of non-ST elevation myocardial infarction (NSTEMI) (10/28/13) Hyperlipidemia Kidney stones Obesity [place] (obstructive sleep apnea) Polyneuropathy due to type 2 diabetes mellitus Seasonal allergies Type II diabetes mellitus Home Medications aspirin 81 mg tablet,delayed release 81 mg PO QDAY 07/16/17 [History Last Taken Unknown] multivitamin 1 tab PO DAILY 12/25/18 [History Last Taken Unknown] atorvastatin 20 mg tablet 20 mg PO DAILY 07/29/19 [History Last Taken Unknown] metformin 1,000 mg tablet 1,000 mg PO BID #60 tab 01/06/20 [Rx Last Taken Unknown] losartan 50 mg tablet 50 mg PO DAILY #90 tab 03/27/20 [Rx Last Taken Unknown] pen needle, diabetic 32 gauge x #600 ea 04/25/20 [Rx Last Taken Unknown] metoprolol tartrate 50 mg tablet 50 mg PO BID #180 tablet 06/01/20 [Rx Last Taken Unknown] insulin lispro 100 unit/mL subcutaneous pen 30 unit SC TID #81 ml 06/12/20 [Rx Last Taken Unknown] blood sugar diagnostic #100 ea 07/31/20 [Rx Last Taken Unknown] lancets 33 gauge #120 ea 07/31/20 [Rx Last Taken Unknown] hydrocodone-acetaminophen 1 tab PO Q6H PRN PRN 3 Days #10 tablet 08/21/20 [Rx Last Taken Unknown] insulin degludec [Tresiba FlexTouch U-200] 85 unit SC DAILY 08/21/20 [History Last Taken Unknown] ondansetron 4 mg PO Q8H PRN PRN #10 tab 08/21/20 [Rx Last Taken Unknown] Allergy/AdvReac Type Severity Reaction Status Date / Time prednisone AdvReac Severe Anaphylactic Verified 08/23/20 11:24 reaction lisinopril AdvReac Intermediate cough Verified 08/23/20 11:24 cortisone [Cortisone] AdvReac Other Verified 08/23/20 11:24 Family History Father Polio Brother Alcoholism Colon cancer Hypertension Surgical History H/O coronary artery bypass surgery (11/01/13) History of back surgery History of left heart catheterization (10/28/13) Social History Smoking Status: Never smoker alcohol intake: current alcohol intake frequency: holidays/special occasions only substance use type: does not use what type of physical activity do you participate in: other frequency: 3-4 times per week ROS ROS ED Constitutional Constitutional ED: Denies chills or fever(s) Eyes Eyes: Denies change in vision ENT ENT ED: Denies sore throat Cardiovascular Cardiovascular: Denies chest pain Respiratory/Chest Respiratory/Chest: Denies cough or dyspnea Gastrointestinal Gastrointestinal: Reports abdominal pain, nausea and vomiting; Denies diarrhea Genitourinary Genitourinary ED: Denies dysuria Musculoskeletal Musculoskeletal: Reports back pain Integumentary Denies rash Neurologic Neurologic: Denies headache(s) or weakness Psychiatric Psychiatric: Denies anxiety or depression Endocrine Endocrinology: Denies polydipsia or polyuria Allergic/Immunologic Allergic/Immunologic ED: Denies urticaria EXAM Physical Exam Const Vital Signs: 08/23/20 11:24 08/23/20 11:32 08/23/20 12:26 Temperature 96.3 F L 98 F 98 F Temperature Source Temporal Temporal Temporal Pulse Rate 68 68 Respiratory Rate 16 16 Blood Pressure 192/88 H 192/88 H Blood Pressure Mean 122 122 Pulse Ox 94 94 Oxygen Delivery Method Room Air Room Air Positive well nourished and well developed General Appearance ED: well developed HEENT Reports normocephalic and head/scalp atraumatic Eyes PERRL and EOMs intact bilaterally Neck supple Chest Wall inspection of chest normal and palpation of chest normal Resp normal respiratory effort and clear to auscultation bilaterally Cardio regular rate and regular rhythm GI non-tender Auscultation: hypoactive bowel sounds Palpation: soft Back/Spine no CVA tenderness Extremity normal to inspection Neuro oriented x3 and no sensory deficits noted Sensorium / Orientation: alert Motor Exam: strength 5/5 throughout Psych mental status grossly normal Skin no rashes or lesions noted MDM MDM MDM Narrative Medical decision making narrative: Patient was given morphine and Zofran for pain control. Toradol was avoided secondary to his elevated creatinine on recent visit. Lab work and urinalysis are obtained. Lab Data Attestation: I reviewed the patient's lab results. Labs: Laboratory Results - last 24 hr 08/23/20 08/23/20 08/23/20 11:45 11:50 11:50 WBC 16.9 H RBC 4.77 Hgb 15.3 Hct 46.4 MCV 97.3 H MCH 32.1 H MCHC 33.0 RDW Std Deviation 43.4 RDW Coeff of [place] 12.0 Plt Count 184 MPV 11.1 Immature Gran % (Auto) 0.900 Neut % (Auto) 78.3 H Lymph % (Auto) 9.8 L [place] % (Auto) 10.4 H Eos % (Auto) 0.2 Baso % (Auto) 0.4 Absolute Neuts (auto) 13.3 H Absolute Lymphs (auto) 1.65 Nucleated RBC % 0 Sodium 139 Potassium 4.9 Chloride 104 Carbon Dioxide 26.0 Anion Gap 9 BUN 45 H Creatinine 2.96 H Estim Creat Clear Calc 25.87 Est GFR (MDRD) Af Amer 27 L Est GFR (MDRD) Non-Af 22 L BUN/Creatinine Ratio 15.2 Glucose 190 H Calcium 9.0 Urine Color Yellow Urine Clarity Clear Urine pH 6.0 Ur Specific [place] 1.015 Urine Protein 30 H Urine Glucose (UA) 250 H Urine Ketones Negative Urine Occult Blood 250 H Urine Nitrite Negative Urine Bilirubin Negative Urine Urobilinogen Normal Ur Leukocyte Esterase Negative Urine RBC 25-50 SEEN Urine WBC 0 SEEN Ur Squamous Epith Cells 0-5 SEEN Urine Bacteria 0 SEEN Urine Mucus 0 SEEN Treatment and Re-Evaluation Comments:: Patient was discussed with Dr. Castellon on arrival. Plan will be to go to the OR for stent placement today. Discharge Plan Dx/Rx/DC Orders Clinical Impression: Ureterolithiasis Disposition Disposition: Acute Care [facility] Discharge Date/Time: 08/23/20 12:28
[2020-08-23] MEDS: Ondansetron 4 MG/2 ML Vial IV (11:56)
[2020-08-23] MEDS: Morphine 4 MG/ML Syringe IV (11:57)
[2020-08-23 12:02] LABS: Bacteria 0 SEEN /hpf (None Seen); Mucous, Urine 0 SEEN /hpf (<or=2+); White Blood Cells 0 SEEN /hpf (0-5)
[2020-08-23] MEDS: 0.9% Normal Saline 1,000 ML 150 ML IV (12:07)
[2020-08-23 12:13] LABS: Absolute Lymphocyte Count 1.65 X10^3/uL (0.83-4.51); Absolute Neutrophil Count 13.3 X10^3/uL (2.0-7.7); Basophil# 0.06 X10^3/uL; Basophil% 0.4 % (0-1); Eosinophil# 0.03 X10^3/uL; Eosinophils% 0.2 % (0-5); Hematocrit 46.4 % (40-54); Hemoglobin 15.3 g/dL (13.0-16.5); Lymphocyte # 1.65 X10^3/ul (0.83-4.51); Lymphocyte % 9.8 % (19-41); Mean Corpuscular Hgb 32.1 pg (27.0-32.0); Mean Corpuscular Volume 97.3 fL (80-94); Mean Platelet Vol. 11.1 fl (6.2-12.0); Monocyte# 1.76 X10^3/uL; Monocyte% 10.4 % (0-10); NRBC Flagged by Analyzer 0 % (0-5); Neutrophil # 13.26 X10^3/uL (2.7-7.7); Neutrophil % 78.3 % (47-70); POSITIVE DIFFERENTIAL YES; Platelet Count 184 K/mm3 (150-450); RBC Distribution Width SD 43.4 fl (35.1-43.9); Red Blood Count 4.77 M/mm3 (4.6-6.2); White Blood Count 16.9 K/mm3 (4.4-11.0)
[2020-08-23 12:15] LABS: Differential Indicated SCAN CRITERIA MET
[2020-08-23 12:17] LABS: Anion Gap 9 (5-15); BUN 45 mg/dL (7-18); BUN/Creat Ratio 15.2 RATIO (10-20); Chloride 104 mmol/L (98-107); Creatinine, Serum 2.96 mg/dL (0.70-1.30); EST Glomerular Filtration Rate 22 mL/min (>60); Est Glom Filt Rate - Afr Amer 27 mL/min (>60); Estimated Creatinine Clearance 25.87 ml/min; Glucose 190 mg/dL (74-106); Potassium 4.9 mmol/L (3.5-5.1); Sodium Level 139 mmol/L (136-145)
[2020-08-23 12:20] LABS: Color, Urine Yellow (Yellow); Glucose, Dipstick 250 mg/dl (Normal); Ketone-Dipstick Negative (Negative); Leukocyte Esterase-Dipstick Negative /ul (Negative); Nitrite-Dipstick Negative (Negative); Occult Blood-Urine 250 /ul (Negative); Protein-Dipstick 30 mg/dl (Negative); Specific Gravity, Urine 1.015 (1.002-1.030); Urine Bilirubin Dipstick Negative (Negative); Urine Clarity Clear (Clear); Urine Urobilinogen Normal (Normal)
[2020-08-23 12:37] LABS: Red Blood Cells-Urine 25-50 SEEN /hpf (0-5); Squamous Epithelial Cells - UA 0-5 SEEN /hpf (0-5)
[2020-08-23 13:03] LABS: Differential Comment SCANNED
--- NOTE | 2020-08-23 15:29 | PCM.HP.STD ---
HPI - General HPI Narrative ELAN SANDOVAL, is a 70 M who presents to the hospital for treatment of a very large left kidney stone he has been having severe pain in the left side which started about 2 days ago. Today we can proceed with treatment of the stone. [facility] Medical History Atherosclerotic heart disease of [place] coronary artery without angina pectoris Back problem Carpal tunnel syndrome Chronic renal insufficiency COPD (chronic obstructive pulmonary disease) Diabetes Encounter for long-term (current) insulin use Essential (primary) hypertension History of non-ST elevation myocardial infarction (NSTEMI) (10/28/13) Hyperlipidemia Kidney stones Obesity [place] (obstructive sleep apnea) Polyneuropathy due to type 2 diabetes mellitus Seasonal allergies Type II diabetes mellitus Home Medications aspirin 81 mg tablet,delayed release 81 mg PO QDAY 07/16/17 [History Last Taken Unknown] multivitamin 1 tab PO DAILY 12/25/18 [History Last Taken Unknown] atorvastatin 20 mg tablet 20 mg PO DAILY 07/29/19 [History Last Taken Unknown] metformin 1,000 mg tablet 1,000 mg PO BID #60 tab 01/06/20 [Rx Last Taken Unknown] losartan 50 mg tablet 50 mg PO DAILY #90 tab 03/27/20 [Rx Last Taken Unknown] pen needle, diabetic 32 gauge x #600 ea 04/25/20 [Rx Last Taken Unknown] metoprolol tartrate 50 mg tablet 50 mg PO BID #180 tablet 06/01/20 [Rx Last Taken Unknown] insulin lispro 100 unit/mL subcutaneous pen 30 unit SC TID #81 ml 06/12/20 [Rx Last Taken Unknown] blood sugar diagnostic #100 ea 07/31/20 [Rx Last Taken Unknown] lancets 33 gauge #120 ea 07/31/20 [Rx Last Taken Unknown] Tresiba FlexTouch U-200 85 unit SC DAILY 08/21/20 [History Last Taken Unknown] hydrocodone-acetaminophen 1 tab PO Q6H PRN PRN 3 Days #10 tablet 08/21/20 [Rx Last Taken Unknown] ondansetron 4 mg PO Q8H PRN PRN #10 tab 08/21/20 [Rx Last Taken Unknown] ciprofloxacin HCl [Cipro] 500 mg PO BID #6 tab 08/23/20 [Rx Last Taken Unknown] oxycodone-acetaminophen 1 tab PO Q4H PRN 7 Days #20 tab 08/23/20 [Rx Last Taken Unknown] Allergy/AdvReac Type Severity Reaction Status Date / Time prednisone AdvReac Severe Anaphylactic Verified 08/23/20 11:24 reaction lisinopril AdvReac Intermediate cough Verified 08/23/20 11:24 cortisone [Cortisone] AdvReac Other Verified 08/23/20 11:24 Family History Father Polio Brother Alcoholism Colon cancer Hypertension Surgical History H/O coronary artery bypass surgery (11/01/13) History of back surgery History of left heart catheterization (10/28/13) Social History Smoking Status: Never smoker alcohol intake: current alcohol intake frequency: holidays/special occasions only substance use type: does not use what type of physical activity do you participate in: other frequency: 3-4 times per week ROS Constitutional Constitutional: Denies chills, fever(s) or malaise Eyes Eyes: Denies blurry vision or change in vision ENT HEENT: Reports none Cardiovascular Cardiovascular: Denies chest pain or palpitations Respiratory/Chest Respiratory/Chest: Denies cough or shortness of breath with exertion Gastrointestinal Gastrointestinal: Denies abdominal pain, constipation or diarrhea Genitourinary Genitourinary: Reports systems reviewed and no addt'l complaints, except as documented Musculoskeletal Musculoskeletal: Denies back pain, joint stiffness or joint swelling Integumentary Integumentary: Denies dry skin, jaundice, lesions or rash Neurologic Neurologic: Denies confusion, syncope or weakness Psychiatric Psychiatric: Reports none; Denies anxiety or depression Endocrine Endocrinology: Denies excessive sweating, fatigue or flushing Hematologic/Lymphatic Hematologic/Lymphatic: Denies anemia, easy bleeding or easy bruising Vital Signs Vital Signs Vital Signs: 08/23/20 11:24 08/23/20 11:32 08/23/20 12:26 Temperature 96.3 F L 98 F 98 F Temperature Source Temporal Temporal Temporal Pulse Rate 68 68 Respiratory Rate 16 16 Blood Pressure 192/88 H 192/88 H Blood Pressure Mean 122 122 Pulse Ox 94 94 Oxygen Delivery Method Room Air Room Air Weight Weight: 147.3 kg Body Mass Index (BMI) 42.8 Physical Exam Const alert and oriented x3 General Appearance: cooperative HEENT normocephalic, head/scalp atraumatic, EAC's normal and TM's normal bilaterally Eyes PERRL and EOMs intact bilaterally Pupil: sluggish Neck no lymphadenopathy, supple and no JVD General: trachea midline Lymph Lymphatic: no lymphadenopathy noted, lymphedema and lymphadenopathy Resp normal respiratory effort, normal air movement and clear to auscultation bilaterally Cardio regular rate, regular rhythm and peripheral pulses 2+ throughout GI soft to palpation, non-tender and non-distended Extremity normal capillary refill and no clubbing, cyanosis or edema General Extremity: no tenderness to palpation of joints or extremities Skin no rashes or lesions noted General Skin Exam: turgor normal Lesions: no lesions Rashes: no rashes Neuro CN's II-XII intact bilaterally Speech: speech normal Motor Exam: strength 5/5 throughout; Negative for general weakness Psych thought process normal, cooperative and affect normal Appearance: appropriate Results Lab / Micro Data Result Diagrams: 08/23/20 11:50 08/23/20 11:50 Labs: Laboratory Results - last 24 hr 08/23/20 08/23/20 08/23/20 11:45 11:50 11:50 WBC 16.9 H RBC 4.77 Hgb 15.3 Hct 46.4 MCV 97.3 H MCH 32.1 H MCHC 33.0 RDW Std Deviation 43.4 RDW Coeff of [place] 12.0 Plt Count 184 MPV 11.1 Immature Gran % (Auto) 0.900 Neut % (Auto) 78.3 H Lymph % (Auto) 9.8 L [place] % (Auto) 10.4 H Eos % (Auto) 0.2 Baso % (Auto) 0.4 Absolute Neuts (auto) 13.3 H Absolute Lymphs (auto) 1.65 Nucleated RBC % 0 Differential Comment SCANNED Sodium 139 Potassium 4.9 Chloride 104 Carbon Dioxide 26.0 Anion Gap 9 BUN 45 H Creatinine 2.96 H Estim Creat Clear Calc 25.87 Est GFR (MDRD) Af Amer 27 L Est GFR (MDRD) Non-Af 22 L BUN/Creatinine Ratio 15.2 Glucose 190 H Calcium 9.0 Urine Color Yellow Urine Clarity Clear Urine pH 6.0 Ur Specific [place] 1.015 Urine Protein 30 H Urine Glucose (UA) 250 H Urine Ketones Negative Urine Occult Blood 250 H Urine Nitrite Negative Urine Bilirubin Negative Urine Urobilinogen Normal Ur Leukocyte Esterase Negative Urine RBC 25-50 SEEN Urine WBC 0 SEEN Ur Squamous Epith Cells 0-5 SEEN Urine Bacteria 0 SEEN Urine Mucus 0 SEEN Assessment & Plan Assessment/Plan (1) Ureterolithiasis: PLAN: Patient has a large left renal calculi causing obstruction plan to proceed with treatment today.
--- NOTE | 2020-08-23 15:31 | PCM.DC ---
Discharge Instructions Diet Discharge Diet: No restrictions Activity Discharge Activity: Return to Normal Activity and May Not Drive (while taking narcotic pain medications.) Dressing / Incision Call your doctor if you observe: Fever of 101 or Higher Follow Up Care Please Follow Up With: Evans Castellon MD When: Call [phone] for an appointment Test Results: Test results from this visit will be discussed in further detail at your follow-up appointment, if applicable. Discharge Plan Admission Primary Reason for Your Visit: cysto stent and laser Attending Provider: Evans Castellon Primary Care Provider: Klarissa Casillas Discharge Orders/Prescriptions Prescriptions: New ciprofloxacin HCl [Cipro] 500 mg tablet 500 mg PO BID Qty: 6 RF: 0 oxycodone-acetaminophen 5-325 mg tablet 1 tab PO Q4H PRN (Reason: pain) 7 Days Qty: 20 RF: 0 Continued atorvastatin 20 mg tablet 20 mg PO DAILY RF: 0 multivitamin Tablet 1 tab PO DAILY RF: 0 metoprolol tartrate 50 mg tablet 50 mg PO BID Qty: 180 RF: 6 insulin lispro [Humalog KwikPen Insulin] 100 unit/mL insulin pen 30 unit SC TID Qty: 81 RF: 3 Tresiba FlexTouch U-200 200 unit/mL (3 mL) insulin pen 85 unit SC DAILY RF: 0 hydrocodone-acetaminophen 1 TABLET tablet 1 tab PO Q6H PRN PRN (Reason: Pain) 3 Days Qty: 10 RF: 0 ondansetron 4 MG tablet 4 mg PO Q8H PRN PRN (Reason: Nausea) Qty: 10 RF: 0 metformin 1,000 mg tablet 1,000 mg PO BID Qty: 60 RF: 6 losartan 50 mg tablet 50 mg PO DAILY Qty: 90 RF: 3 (DME) pen needle, diabetic [BD Ultra-Fine Irma Pen Needle] 32 gauge x 5/32 needle See Rx Instructions .ROUTE .MEDSUPPLY Qty: 600 RF: 3 (DME) lancets [OneTouch Delica Plus Lancet] 33 gauge misc See Rx Instructions .ROUTE .MEDSUPPLY Qty: 120 RF: 8 (DME) OneTouch Verio test strips Strip See Rx Instructions .ROUTE .MEDSUPPLY Qty: 100 RF: 12 Held aspirin [Adult Low Dose Aspirin] 81 mg tablet,delayed release (DR/EC) 81 mg PO QDAY RF: 0 Hold Instructions: Resume on 08/30/20. Referrals / Follow Up: Klarissa Casillas MD [Primary Care Provider] - Evans Castellon MD [STAFF PHYSICIAN] - Disposition Disposition (needs filled in before D/C Order can be placed): Home, Self Care
[2020-08-23] MEDS: Cefazolin 2 GM in 0.9% Normal Saline 100 ML IV (15:37)
--- NOTE | 2020-08-23 15:57 | OP.PCM_ITS ---
Report of Operation Date of Procedure: 08/23/20 Pre-Operative Diagnosis: Right obstructing renal calculi severe renal pain, eliezer vated white blood count Post-Operative Diagnosis: Same Surgery/Procedure Performed:: Cystoscopy left retrograde pyelogram left stent placement Description of Surgical Findings:: 70-year-old male who has a history of a large stone in the left kidney we elected to watch the stone since it was a lower pole I called in today in the office was having severe pain in the left side recent admission to the ER with a large stone in the left kidney it is moved and now causing obstruction so he was brought to the operating room today for cystoscopy and stent placement. Patient was taken back to the operating room at the smooth induction of general anesthesia he was placed supine on the table. The penis and testicles were prepped and draped in usual sterile fashion. I went in the bladder with a 21 Bulgarian rigid cystourethroscope. Identified the left ureter orifice. Performed a left retrograde pyelogram we can see obstructing stones in the left renal pelvis I then coiled the wire in the upper pole and then place a stent in the left kidney once a stent was a good position I pulled the wire the stent coiled in the kidney and bladder good position and the bladder was drained patient anesthetic reversed and he was discharged home in good condition my office will call him for further instructions. Surgeon: kati Type of Anesthesia: General Drains: stent left Admit VTE Documentation VTE Present on Admission: No VTE Mechan Device Prophylaxis: SCD's
[2020-08-23 16:26] LABS: Bedside Glucose 101 mg/dL (70-110)
[2020-08-24 12:13] LABS: Pathologist Review Reviewed
== END 2020-08-23 17:15 | disposition home or self-care (01) ==
LOC: ED 12:06 → SDC 12:09 → AC 12:10
PROVIDERS: Emergency Provider Emergency Medicine; PCP Family Medicine; Visit Provider Urology
PROC: 0TJ98ZZ Inspection of Ureter, Via Natural or Artificial Opening Endoscopic (ICD-10-PCS; CPT 52352; principal; 2020-08-23 15:05)
DX: N20.0 Calculus of kidney (principal); E11.22 Type 2 diabetes mellitus with diabetic chronic kidney disease; I12.9 Hypertensive chronic kidney disease with stage 1 through stage 4 chronic kidney disease, or unspecified chronic kidney disease; N18.9 Chronic kidney disease, unspecified; E11.52 Type 2 diabetes mellitus with diabetic peripheral angiopathy with gangrene; I25.10 Atherosclerotic heart disease of native coronary artery without angina pectoris; J44.9 Chronic obstructive pulmonary disease, unspecified; E78.5 Hyperlipidemia, unspecified; G47.33 Obstructive sleep apnea (adult) (pediatric); E66.9 Obesity, unspecified; Z68.41 Body mass index [BMI] 40.0-44.9, adult; Z79.4 Long term (current) use of insulin; Z79.82 Long term (current) use of aspirin; Z79.899 Other long term (current) drug therapy; I25.2 Old myocardial infarction; Z87.442 Personal history of urinary calculi; Z95.1 Presence of aortocoronary bypass graft
CPT/HCPCS: 52332; 76000; 80048; 81001; 82962; 85025; 99284; J7030; C1769; J2405

== ENCOUNTER → 2020-08-24 12:23 | Outpatient (CLI) | payer MEDICARE, OTHER, SELFPAY ==
[2020-08-23 11:32] VITALS: BMI 42.8
--- NOTE | 2020-08-24 12:25 | EKG12_ITS ---
Test Reason : PREOP Blood Pressure : / mmHG Vent. Rate : 067 BPM Atrial Rate : 067 BPM P-R Int : 168 ms QRS Dur : 104 ms QT Int : 422 ms P-R-T Axes : 060 -06 009 degrees QTc Int : 445 ms Normal sinus rhythm Normal ECG Confirmed by ASYA BRIONES, FRANKIE ([id number]), clinical editor JOSELINE WILKINS ([id number]) on 08/24/2020 2:47:22 PM Referred By: Evans Castellon Confirmed By:ELLEN SKY MD
== END ==
PROVIDERS: PCP Family Medicine; Referring Provider Urology; Visit Provider Urology
DX: Z01.812 Encounter for preprocedural laboratory examination (principal); I10 Essential (primary) hypertension; I25.10 Atherosclerotic heart disease of native coronary artery without angina pectoris
CPT/HCPCS: 93005

== ENCOUNTER → 2020-08-31 08:19 | Outpatient (CLI) | payer MEDICARE, OTHER, SELFPAY ==
[2020-08-23 11:32] VITALS: BMI 42.8
--- NOTE | 2020-08-31 08:21 | RAD_ITS ---
STUDY: X-RAY - ABDOMEN/PELVIS REASON FOR EXAM: Male, 70 years old. CALCULUS OF KIDNEY TECHNIQUE: Single AP view of the abdomen / pelvis. COMPARISON: Comparison is made with prior examination dated 04/25/2020. FINDINGS: Normal visualized lung bases. There is an unremarkable bowel gas pattern. The left-sided double-J urethral stent catheter is seen with the proximal tip in the superior pole of the left kidney and distal tip in the left side of the bladder. The previously seen left intrarenal calculus has been removed. Tiny calyceal calcifications are seen in the left kidney. Normal soft tissue structures. There are diffuse degenerative changes of the visualized lumbar spine. RAD/Abdomen Single View IMPRESSION: Status post left calculus removal with placement of a double-J stent catheter. Small residual calcifications are seen in the mid and lower pole calyces of the left kidney. Electronically Signed: Brian Plata MD at 10:57 EDT , Service support ,
== END ==
PROVIDERS: PCP Family Medicine; Referring Provider Urology; Visit Provider Urology
DX: N20.2 Calculus of kidney with calculus of ureter (principal)
CPT/HCPCS: 74018

== ENCOUNTER → 2020-12-14 14:53 | Outpatient (CLI) | payer MEDICARE, OTHER, SELFPAY ==
[2020-12-14 16:16] LABS: AST(SGOT) 20 U/L (15-37); Alanine Aminotransfer ALT/SGPT 34 U/L (16-61); Albumin, Serum 3.6 g/dL (3.2-5.0); Alkaline Phosphatase 87 U/L (45-117); Bilirubin, Direct 0.13 mg/dL (0.00-0.30); Cholesterol 110 mg/dL (200); Globulin 4.1 g/dL (2.2-4.2); High Density Lipoprotein 39 mg/dL; Protein, Total 7.7 g/dL (6.4-8.2); Triglycerides 173 mg/dL; Very Low Density Lipoprotein 35 mg/dL (5-40)
== END ==
PROVIDERS: PCP Family Medicine; Referring Provider Internal Medicine Cardiovascular Disease; Visit Provider Internal Medicine Cardiovascular Disease
DX: E11.22 Type 2 diabetes mellitus with diabetic chronic kidney disease (principal); N18.30 Chronic kidney disease, stage 3 unspecified; E78.2 Mixed hyperlipidemia; Z79.4 Long term (current) use of insulin
CPT/HCPCS: 36415; 80061; 80076

== ENCOUNTER 2020-12-27 06:48 | Emergency (ER) | payer MEDICARE, OTHER, SELFPAY ==
[2020-12-27 06:49] VITALS: BP 200/93; PULSE 70; RESP 18; TEMP 35.5; O2SAT 98; BMI 43.1
--- NOTE | 2020-12-27 06:50 | CT_ITS ---
STUDY: CT ABDOMEN AND PELVIS WITHOUT CONTRAST REASON FOR EXAM: Male, 70 years old. Kidney Stone RADIATION DOSAGE (If Supplied By Facility): CTDIvol = ( 24.11 ) mGy, DLP = ( 1361.13 ) mGycm TECHNIQUE: Transaxial images were obtained from the dome of the diaphragm to the symphysis pubis without oral contrast, and without intravenous contrast. Sagittal and coronal images were reconstructed. Individualized dose optimization techniques were used for this CT. COMPARISON: August 21, 2020 CT scan abdomen and pelvis FINDINGS: The visualized lung bases are unremarkable. There is mild cardiac enlargement or coronary calcifications. Sternotomy wires are seen midline. Normal liver. Normal gallbladder and extrahepatic biliary system. Normal spleen. Normal pancreas. Normal bilateral adrenal glands. There is moderate to severe right renal edema right perinephric stranding. There is a punctate stone in the right kidney image #76. There is moderate right hydronephrosis. There is a stone in the proximal right ureter measuring 4.0 x 4.6 mm. This is adjacent to a more proximal stone measuring 4.1 x 3 mm. There is also a stone just inside the bladder ureterovesicular junction that measures 7.1 x 3.9 mm. There is a visualized intraparenchymal cystic structure measuring 2.1 x 2.1 cm. This is also seen on prior study and is less apparent on today''s study. Normal visualized stomach. Normal small intestine. There is mild to moderate stool in the colon. The appendix is visualized and appears normal. There is partial atherosclerotic calcification of the abdominal aorta, without a demonstrated aneurysm. Normal inferior vena cava. Normal retroperitoneum. There is a stone in the right-sided the bladder measuring 7.1 x 3.9 mm. There are prostatic calcifications. There are bilateral fatty inguinal hernias. There are diffuse degenerative changes of the visualized lumbar spine. CT/Abdomen/Pelvis without Cont IMPRESSION: Moderate to severe right renal edema. Moderate right hydronephrosis. Right perinephric stranding. There are 2 stones in tandem in the proximal right ureter as detailed above measuring 4.0 x 4.6 mm and 4.1 x 3 mm. In addition there is a stone just inside the bladder to level of ureterovesicular junction measuring 7.1 x 3.9 mm. Punctate stone right kidney. Vague appearing left intraparenchymal cyst left kidney measuring 2.1 x 2.1 cm less apparent than the prior study. Could consider follow-up ultrasound when appropriate. Electronically Signed: Helena Moreno MD at 7:49 EDT Tel , Service support ,
--- NOTE | 2020-12-27 06:55 | EX.ED.DYSGE1 ---
HPI <Dr. Luiz Bhatt MD - Last Filed: 12/28/20 05:05> History of Present Illness Chief Complaint: Flank Pain Informant: patient Onset/Context/Timing Onset: Hours (Onset approximately 0100) Context: Sudden Onset Timing: Continuous and Waxes and wanes Quality: Pain Location: Now right low back and anterior down near the bladder Current Severity: Moderate Maximum Severity: Severe Worsened by: Nothing Relieved by: Nothing Associated Symptoms Associated Symptoms: Dry heaves and urgency. Patient states he noted blood yesterday in his uri Narrative Narrative: Patient is an elderly male with history of coronary disease, hyperlipidemia, type 2 diabetes, and hypertension who presents with right-sided back pain that is similar to prior episodes of kidney stone pain . Patient states he took his blood pressure med prior to coming. He denies headache, visual, ocular auditory symptoms. Denies cardiac respiratory symptoms. He reports the dry heaves otherwise no GI symptoms. He reports hematuria, urgency without dysuria. He denies fever, chills or night sweats. He states he was slightly diaphoretic with the onset of pain. Prior similar symptoms: Yes Recent Illness/Hospitalization: No PFSH <Dr. Luiz Bhatt MD - Last Filed: 12/28/20 05:05> [facility] Medical History Atherosclerotic heart disease of [place] coronary artery without angina pectoris Back problem Carpal tunnel syndrome Chronic renal insufficiency COPD (chronic obstructive pulmonary disease) Diabetes Encounter for long-term (current) insulin use Essential (primary) hypertension History of non-ST elevation myocardial infarction (NSTEMI) (10/28/13) Hyperlipidemia Kidney stones Obesity [place] (obstructive sleep apnea) Polyneuropathy due to type 2 diabetes mellitus Seasonal allergies Type II diabetes mellitus Ureterolithiasis Home Medications aspirin 81 mg tablet,delayed release 81 mg PO QDAY 07/16/17 [History Last Taken Unknown] multivitamin 1 tab PO DAILY 12/25/18 [History Last Taken Unknown] atorvastatin 20 mg tablet 20 mg PO DAILY 07/29/19 [History Last Taken Unknown] metformin 1,000 mg tablet 1,000 mg PO BID #60 tab 01/06/20 [Rx Last Taken Unknown] losartan 50 mg tablet 50 mg PO DAILY #90 tab 03/27/20 [Rx Last Taken Unknown] pen needle, diabetic 32 gauge x 5/32 #600 ea 04/25/20 [Rx Last Taken Unknown] metoprolol tartrate 50 mg tablet 50 mg PO BID #180 tablet 06/01/20 [Rx Last Taken Unknown] insulin lispro 100 unit/mL subcutaneous pen 30 unit SC TID #81 ml 06/12/20 [Rx Last Taken Unknown] blood sugar diagnostic #100 ea 07/31/20 [Rx Last Taken Unknown] lancets 33 gauge #120 ea 07/31/20 [Rx Last Taken Unknown] ondansetron 4 mg PO Q8H PRN PRN #10 tab 08/21/20 [Rx Last Taken Unknown] insulin degludec 200 unit/mL (3 mL) subcutaneous pen 78 unit SC DAILY ml 11/13/20 [History Last Taken Unknown] Allergy/AdvReac Type Severity Reaction Status Date / Time prednisone AdvReac Severe Anaphylactic Verified 12/27/20 06:55 reaction lisinopril AdvReac Intermediate cough Verified 12/27/20 06:55 cortisone [Cortisone] AdvReac Other Verified 12/27/20 06:55 Family History Father Polio Brother Alcoholism Colon cancer Hypertension Surgical History H/O coronary artery bypass surgery (11/01/13) History of back surgery History of left heart catheterization (10/28/13) Social History (Updated 12/27/20 @ 06:[address] Luiz Bhatt MD) household members: spouse Smoking Status: Never smoker alcohol intake: current alcohol intake frequency: holidays/special occasions only substance use type: does not use what type of physical activity do you participate in: other frequency: 3-4 times per week ROS <Dr. Luiz Bhatt MD - Last Filed: 12/28/20 05:05> ROS ED Constitutional Constitutional ED: Denies chills, fever(s), subjective, sweats or weight loss Eyes Eyes: Denies blurry vision, change in vision or diplopia ENT ENT ED: Denies ear pain, rhinorrhea or sore throat Cardiovascular Cardiovascular: Denies chest pain, palpitations or racing heartbeat Respiratory/Chest Respiratory/Chest: Denies cough, dyspnea or dyspnea on exertion Gastrointestinal Gastrointestinal: Reports abdominal pain and nausea; Denies constipation, diarrhea or melena Genitourinary Genitourinary ED: Reports hematuria and urinary frequency; Denies dysuria Musculoskeletal Musculoskeletal: Reports back pain; Denies arthralgias, myalgias or neck pain Integumentary Denies rash Endocrine Endocrinology: Denies polydipsia, polyphagia or polyuria EXAM <Dr. Luiz Bhatt MD - Last Filed: 12/28/20 05:05> Physical Exam Const Vital Signs: 12/27/20 06:49 12/27/20 09:20 12/27/20 10:26 Temperature 96 F L Temperature Source Temporal Pulse Rate 70 73 66 Respiratory Rate 18 15 18 Blood Pressure 200/93 H 142/69 H 160/67 H Blood Pressure Mean 128 93 Pulse Ox 98 96 95 Oxygen Delivery Method Room Air Room Air Positive well nourished, well developed and obese General Appearance ED: well developed; Negative for NAD or pallor Nutritional Appearance: obese HEENT HEENT Narrative: Head is atraumatic normocephalic. Ears normal. Nares patent. Eyes PERRL and EOMs intact bilaterally General Eye ED: Negative for pale conjunctiva or scleral icterus Neck no lymphadenopathy and supple Resp normal respiratory effort and clear to auscultation bilaterally Cardio regular rate, regular rhythm, S1 normal heart sound, S2 normal heart sound and no murmurs GI normal to inspection, nondistended, normoactive bowel sounds, non-tender and non-distended Palpation: soft Back/Spine no CVA tenderness Thoracic Spine / Upper Back: Negative for paraspinal muscle tenderness Extremity normal to inspection General Extremety ED: Yes edema; Negative for tenderness General Extremity: edema Neuro oriented x3 and CN's II-XII intact bilaterally Neuro Narrative: Gait is normal. Sensorium / Orientation: alert Psych mental status grossly normal Skin no rashes or lesions noted and no wounds General Skin Exam: Negative for jaundice or pallor <Dr. Martinez Carroll MD - Last Filed: 12/27/20 10:25> Physical Exam Const Vital Signs: 12/27/20 06:49 12/27/20 09:20 12/27/20 10:26 Temperature 96 F L Temperature Source Temporal Pulse Rate 70 73 66 Respiratory Rate 18 15 18 Blood Pressure 200/93 H 142/69 H 160/67 H Blood Pressure Mean 128 93 Pulse Ox 98 96 95 Oxygen Delivery Method Room Air Room Air [facility] <Dr. Luiz Bhatt MD - Last Filed: 12/28/20 05:05> [facility] Narrative Medical decision making narrative: Patient presents with pain suggestive of obstructive ureteral stone. Since he is elderly with multiple medical problems and diabetic with neuropathy he was treated with morphine and Zofran for his pain and nausea with dry heaves. BMP was obtained to assess renal function and glucose since he is diabetic. CBC to assess white count. CT of the flank was ordered. Blood pressure is elevated which may be due to pain. Will reassess once patient is been adequately medicated. Lab Data Attestation: I reviewed the patient's lab results. Lab results narrative: CBC reveals elevated white count. There is demargination noted. Basic Maddy panel is remarkable for a creatinine of 2.1 with a GFR of 33 and a glucose of 254. The UA has not been collected and the CT has not been done. Case to be turned over to the oncoming physician. Creatinine was 2.9 30 July 2020. 7 days level is an improvement. Labs: Laboratory Results - last 24 hr 12/27/20 12/27/20 12/27/20 06:54 06:54 07:49 WBC 14.2 H RBC 4.74 Hgb 15.0 Hct 46.3 MCV 97.7 H MCH 31.6 MCHC 32.4 RDW Std Deviation 44.5 H RDW Coeff of Nedra 12.4 Plt Count 197 MPV 10.9 Immature Gran % (Auto) 1.100 H Neut % (Auto) 81.3 H Lymph % (Auto) 10.3 L [place] % (Auto) 6.1 Eos % (Auto) 0.5 Baso % (Auto) 0.7 Absolute Neuts (auto) 11.6 H Absolute Lymphs (auto) 1.47 Nucleated RBC % 0 Sodium 135 L Potassium 4.4 Chloride 107 Carbon Dioxide 24.0 Anion Gap 4 L BUN 46 H Creatinine 2.10 H Estim Creat Clear Calc 36.46 Est GFR (MDRD) Af Amer 40 L Est GFR (MDRD) Non-Af 33 L BUN/Creatinine Ratio 21.9 H Glucose 254 H Calcium 9.1 Urine Color Yellow Urine Clarity Sl. Cloudy Urine pH 5.0 Ur Specific [place] 1.020 Urine Protein 100 H Urine Glucose (UA) 250 H Urine Ketones 15 H Urine Occult Blood 250 H Urine Nitrite Negative Urine Bilirubin Negative Urine Urobilinogen Normal Ur Leukocyte Esterase Negative Urine RBC 5-10 SEEN Urine WBC 0-5 SEEN Ur Squamous Epith Cells 0 SEEN Urine Bacteria 1+ Urine Mucus 0 SEEN Radiography Diagnostic Testing: Clinical Impression(s) from Imaging Studies Abdomen/Pelvis CT 12/27/20 06:50 IMPRESSION: Moderate to severe right renal edema. Moderate right hydronephrosis. Right perinephric stranding. There are 2 stones in tandem in the proximal right ureter as detailed above measuring 4.0 x 4.6 mm and 4.1 x 3 mm. In addition there is a stone just inside the bladder to level of ureterovesicular junction measuring 7.1 x 3.9 mm. Punctate stone right kidney. Vague appearing left intraparenchymal cyst left kidney measuring 2.1 x 2.1 cm less apparent than the prior study. Could consider follow-up ultrasound when appropriate. Electronically Signed: Helena Moreno MD at 7:49 EDT Tel , Service support , <Dr. Martinez Carroll MD - Last Filed: 12/27/20 10:25> MDM MDM Narrative Medical decision making narrative: Patient known to me by the overnight physician. I checked his urinalysis that shows 5-10 red cells no signs of infection. CT flank study showed actually 3 stones. 2 4 mm stones mid right ureter with hydroureter and hydronephrosis. Also recently passed 7 mm stone in his bladder just past the UVJ. I discussed all this with the patient. He has known renal insufficiency with a creatinine of 2.1 which is his baseline. Patient did not waiting more for pain. He is comfortable currently pain-free. He has had lithotripsy in the past and will follow up with Dr. Diez. He has pain medications at home. His will be picking him up. Lab Data Attestation: I reviewed the patient's lab results. Lab results narrative: CBC shows a white count of 14.2. Hemoglobin 15. Electrolytes unremarkable BUN 46 creatinine 2.1 with a history of chronic renal insufficiency. Glucose of 254. UA positive for red cells secondary to the kidney stone. 1+ bacteria no white cells and no nitrites. CT flank study showed to 4 mm kidney stones mid right ureter with hydronephrosis. 1 recently passed 7 mm stone in the bladder. Labs: Laboratory Results - last 24 hr 12/27/20 12/27/20 12/27/20 06:54 06:54 07:49 WBC 14.2 H RBC 4.74 Hgb 15.0 Hct 46.3 MCV 97.7 H MCH 31.6 MCHC 32.4 RDW Std Deviation 44.5 H RDW Coeff of Ned[place] 12.4 Plt Count 197 MPV 10.9 Immature Gran % (Auto) 1.100 H Neut % (Auto) 81.3 H Lymph % (Auto) 10.3 L [place] % (Auto) 6.1 Eos % (Auto) 0.5 Baso % (Auto) 0.7 Absolute Neuts (auto) 11.6 H Absolute Lymphs (auto) 1.47 Nucleated RBC % 0 Sodium 135 L Potassium 4.4 Chloride 107 Carbon Dioxide 24.0 Anion Gap 4 L BUN 46 H Creatinine 2.10 H Estim Creat Clear Calc 36.46 Est GFR (MDRD) Af Amer 40 L Est GFR (MDRD) Non-Af 33 L BUN/Creatinine Ratio 21.9 H Glucose 254 H Calcium 9.1 Urine Color Yellow Urine Clarity Sl. Cloudy Urine pH 5.0 Ur Specific [place] 1.020 Urine Protein 100 H Urine Glucose (UA) 250 H Urine Ketones 15 H Urine Occult Blood 250 H Urine Nitrite Negative Urine Bilirubin Negative Urine Urobilinogen Normal Ur Leukocyte Esterase Negative Urine RBC 5-10 SEEN Urine WBC 0-5 SEEN Ur Squamous Epith Cells 0 SEEN Urine Bacteria 1+ Urine Mucus 0 SEEN Radiography Diagnostic Testing: Clinical Impression(s) from Imaging Studies Abdomen/Pelvis CT 12/27/20 06:50 IMPRESSION: Moderate to severe right renal edema. Moderate right hydronephrosis. Right perinephric stranding. There are 2 stones in tandem in the proximal right ureter as detailed above measuring 4.0 x 4.6 mm and 4.1 x 3 mm. In addition there is a stone just inside the bladder to level of ureterovesicular junction measuring 7.1 x 3.9 mm. Punctate stone right kidney. Vague appearing left intraparenchymal cyst left kidney measuring 2.1 x 2.1 cm less apparent than the prior study. Could consider follow-up ultrasound when appropriate. Electronically Signed: Helena Moreno MD at 7:49 EDT Tel , Service support , Discharge Plan Triage Chief Complaint: Flank Pain ED Provider: Luiz Bhatt Dx/Rx/DC Orders Clinical Impression: Kidney stone on right side Instructions: ED Kidney Stone w/ Colic Prescriptions: No Action aspirin [Adult Low Dose Aspirin] 81 mg tablet,delayed release (DR/EC) 81 mg PO QDAY RF: 0 Hold Instructions: Resume on 08/30/20. atorvastatin 20 mg tablet 20 mg PO DAILY RF: 0 multivitamin Tablet 1 tab PO DAILY RF: 0 metoprolol tartrate 50 mg tablet 50 mg PO BID Qty: 180 RF: 6 insulin lispro [Humalog KwikPen Insulin] 100 unit/mL insulin pen 30 unit SC TID Qty: 81 RF: 3 ondansetron 4 MG tablet 4 mg PO Q8H PRN PRN (Reason: Nausea) Qty: 10 RF: 0 metformin 1,000 mg tablet 1,000 mg PO BID Qty: 60 RF: 6 losartan 50 mg tablet 50 mg PO DAILY Qty: 90 RF: 3 (DME) pen needle, diabetic [BD Ultra-Fine Irma Pen Needle] 32 gauge x 5/32 needle See Rx Instructions .ROUTE .MEDSUPPLY Qty: 600 RF: 3 (DME) lancets [OneTouch Delica Plus Lancet] 33 gauge misc See Rx Instructions .ROUTE .MEDSUPPLY Qty: 120 RF: 8 (DME) OneTouch Verio test strips Strip See Rx Instructions .ROUTE .MEDSUPPLY Qty: 100 RF: 12 Tresiba FlexTouch U-200 200 unit/mL (3 mL) insulin pen 78 unit SC DAILY RF: 0 Primary Care Provider: Klarissa Casillas Referrals: Klarissa Casillas MD [Primary Care Provider] - As Needed Evans Castellon MD [STAFF PHYSICIAN] - 3-5 Days if not improving Activity Restrictions/Additional Instructions: Plenty of fluids and rest. Strain your urine for the past stones. You have a past 7 mm stone in your bladder and 2 4 mm stone still in your mid right ureter. These all should pass. Use your home pain medications as needed. Follow-up with your urologist if not improving. Return if fever or feeling worse. Disposition Disposition: Home, Self Care Discharge Date/Time: 12/27/20 10:27
[2020-12-27 07:02] LABS: Absolute Lymphocyte Count 1.47 X10^3/uL (0.83-4.51); Absolute Neutrophil Count 11.6 X10^3/uL (2.0-7.7); Basophil% 0.7 % (0-1); Eosinophil# 0.07 X10^3/uL; Eosinophils% 0.5 % (0-5); Hematocrit 46.3 % (40-54); Lymphocyte # 1.47 X10^3/ul (0.83-4.51); Lymphocyte % 10.3 % (19-41); Mean Corp Hgb Conc 32.4 g/dL (32-36); Mean Corpuscular Hgb 31.6 pg (27.0-32.0); Mean Corpuscular Volume 97.7 fL (80-94); Mean Platelet Vol. 10.9 fl (6.2-12.0); Monocyte# 0.87 X10^3/uL; Monocyte% 6.1 % (0-10); NRBC Flagged by Analyzer 0 % (0-5); Neutrophil # 11.56 X10^3/uL (2.7-7.7); Neutrophil % 81.3 % (47-70); Platelet Count 197 K/mm3 (150-450); RBC Distribution Width CV 12.4 % (11.6-14.6); RBC Distribution Width SD 44.5 fl (35.1-43.9); Red Blood Count 4.74 M/mm3 (4.6-6.2); White Blood Count 14.2 K/mm3 (4.4-11.0)
[2020-12-27] MEDS: Ondansetron 4 MG/2 ML Vial IV (07:06)
[2020-12-27] MEDS: morphine 8 MG/ML Syringe IV (07:06)
[2020-12-27] MEDS: 0.9% Normal Saline 1,000 ML 250 ML IV (07:06)
[2020-12-27 07:15] LABS: Anion Gap 4 (5-15); BUN 46 mg/dL (7-18); BUN/Creat Ratio 21.9 RATIO (10-20); Calcium,Total 9.1 mg/dL (8.5-10.1); Chloride 107 mmol/L (98-107); EST Glomerular Filtration Rate 33 mL/min (>60); Est Glom Filt Rate - Afr Amer 40 mL/min (>60); Estimated Creatinine Clearance 36.46 ml/min; Glucose 254 mg/dL (74-106); Potassium 4.4 mmol/L (3.5-5.1); Sodium Level 135 mmol/L (136-145)
[2020-12-27 07:55] LABS: Mucous, Urine 0 SEEN /hpf (<or=2+); Squamous Epithelial Cells - UA 0 SEEN /hpf (0-5)
[2020-12-27 07:57] LABS: Color, Urine Yellow (Yellow); Glucose, Dipstick 250 mg/dl (Normal); Ketone-Dipstick 15 mg/dl (Negative); Leukocyte Esterase-Dipstick Negative /ul (Negative); Nitrite-Dipstick Negative (Negative); Occult Blood-Urine 250 /ul (Negative); Protein-Dipstick 100 mg/dl (Negative); Urine Bilirubin Dipstick Negative (Negative); Urine Clarity Sl. Cloudy (Clear); Urine Urobilinogen Normal (Normal)
[2020-12-27 08:02] LABS: Red Blood Cells-Urine 5-10 SEEN /hpf (0-5); White Blood Cells 0-5 SEEN /hpf (0-5)
[2020-12-27 08:03] LABS: Bacteria 1+ /hpf (None Seen)
[2020-12-27 09:20] VITALS: BP 142/69; PULSE 73; RESP 15; O2SAT 96
[2020-12-27 10:26] VITALS: BP 160/67; PULSE 66; RESP 18; O2SAT 95
== END 2020-12-27 10:27 | disposition home or self-care (01) ==
PROVIDERS: Emergency Provider Emergency Medicine; PCP Family Medicine
DX: N13.2 Hydronephrosis with renal and ureteral calculous obstruction (principal); I25.10 Atherosclerotic heart disease of native coronary artery without angina pectoris; E11.22 Type 2 diabetes mellitus with diabetic chronic kidney disease; I12.9 Hypertensive chronic kidney disease with stage 1 through stage 4 chronic kidney disease, or unspecified chronic kidney disease; N18.9 Chronic kidney disease, unspecified; J44.9 Chronic obstructive pulmonary disease, unspecified; E11.40 Type 2 diabetes mellitus with diabetic neuropathy, unspecified; E78.5 Hyperlipidemia, unspecified; G47.33 Obstructive sleep apnea (adult) (pediatric); E66.9 Obesity, unspecified; Z79.4 Long term (current) use of insulin; Z79.82 Long term (current) use of aspirin; Z79.899 Other long term (current) drug therapy; I25.2 Old myocardial infarction
CPT/HCPCS: 74176; 80048; 81001; 85025; 96361; 96374; 96375; 99283; J7030; A4216; J2405

== ENCOUNTER 2021-06-11 08:16 | Outpatient (CLI) | payer MEDICARE, OTHER, SELFPAY ==
--- NOTE | 2021-06-11 08:30 | RAD_ITS ---
INDICATION: CALCULUS OF KIDNEY AND URETER EXAMINATION/TECHNIQUE: X-RAY - XR Abdomen 1 View COMPARISON: 08/31/2009 1 FINDINGS: Previously visualized left ureteric stent is normal seen on today''s study. BOWEL GAS PATTERN: Non-obstructive. No bowel or stomach distention. FREE AIR: Not assessed on a single supine view. ORGANOMEGALY: Not seen. CALCIFICATIONS: No abnormal calcifications observed. Scattered stool visualized within the bowel loops obscuring the renal beds. LOWER CHEST: No acute pathology. BONES AND SOFT TISSUES: Degenerative bone changes seen. RAD/Abdomen Single View IMPRESSION: Non-obstructive bowel gas pattern. Electronically Signed: Gurwinder Donohue MD at 10:18 EDT ,
== END 2021-06-11 23:59 | disposition home or self-care (01) ==
LOC: RAD 08:17
PROVIDERS: PCP Family Medicine; Referring Provider Urology; Visit Provider Urology
DX: N20.2 Calculus of kidney with calculus of ureter (principal)
CPT/HCPCS: 74018

== ENCOUNTER → 2021-06-28 | Outpatient (CLI) | payer MEDICARE, OTHER, SELFPAY ==
[2021-06-28 17:04] LABS: Anion Gap 5 (5-15); BUN 39 mg/dL (7-18); BUN/Creat Ratio 22.5 RATIO (10-20); Calcium,Total 9.4 mg/dL (8.5-10.1); Chloride 109 mmol/L (98-107); Creatinine, Serum 1.73 mg/dL (0.70-1.30); EST Glomerular Filtration Rate 41 mL/min (>60); Est Glom Filt Rate - Afr Amer 50 mL/min (>60); Glucose 113 mg/dL (74-106); Potassium 4.5 mmol/L (3.5-5.1); Sodium Level 140 mmol/L (136-145)
== END | disposition home or self-care (01) ==
LOC: LAB 15:42
PROVIDERS: PCP Family Medicine; Visit Provider Internal Medicine Cardiovascular Disease
DX: Z95.1 Presence of aortocoronary bypass graft (principal)
CPT/HCPCS: 36415; 80048